=== PATIENT | female | born 1945 | race Caucasian/White ===

== ENCOUNTER 2019-04-04 07:16 | Inpatient (IN) | payer MEDICARE, OTHER, SELFPAY ==
[2019-03-26 12:59] VITALS: BMI 37.9
[2019-04-04] VITALS (26 sets, daily range): BP systolic 88–148; BP diastolic 47–84; PULSE 76–88; RESP 10–19; TEMP 35.8–36.9; O2SAT 78–100; BMI 37.9
--- NOTE | 2019-04-04 | DI.RAD.S_ITS ---
PROCEDURE: XR LUMBAR SPINE 2-3V INDICATIONS: L3-4-5-S1 TLIF TECHNIQUE: 2 views of the lumbar spine were acquired. COMPARISON: [facility] TRACIE Julian, XR LUMBAR SPINE 2 OR 3 VIEWS, 12/01/2018, 13:01. FINDINGS: Bones: Immediate postoperative examination showing normal alignment established by transverse pedicle screws and vertical fixation rods bilaterally, with interbody disc cage prosthesis devices from L3-S1. Soft tissues: Overlying bowel gas pattern is normal. No suspicious soft tissue calcifications. IMPRESSION: Normal alignment established by posterior fusion and three-level interbody disc cage prosthesis devices. Dictated by: Omar Fernandez M.D. on 04/04/2019 at 14:38 Approved by: Omar Fernandez M.D. on 04/04/2019 at 14:40
[2019-04-04] MEDS: LACTATED RINGERS 1,000 ML 42 ML IV ×4 (08:15→13:56)
--- NOTE | 2019-04-04 08:43 | PM.PREOP ---
Pre-operative Note Interval Note History & Physical reviewed/Exam performed by Physician: Yes Changes to H&P: No
[2019-04-04] MEDS: CEFAZOLIN 2 GM/100 ML FROZ.PIGGY IV ×3 (09:10→20:18)
--- NOTE | 2019-04-04 09:40 | SUR.OPER ---
Prone on spine table, head in foam head support, padded chest and pelvic supports, gel pad at knees, lower legs supported by pillows; nipples, genitalia and toes free of pressure, arms secured on foam padded arm boards at <90 degrees abduction. Tape over blanket at thigh secured to table.
[2019-04-04] MEDS: BUPIVACAINE LIPOSOME 266 MG/20 ML VIAL INJ (09:56)
[2019-04-04] MEDS: BUPIVACAINE 0.25% W/ EPI 30 ML VIAL INJ (09:57)
--- NOTE | 2019-04-04 11:37 | SUR.OPER ---
floseal x 2 syringes used lot [id number]
--- NOTE | 2019-04-04 12:38 | SUR.OPER ---
Late in OR - anesthesia meeting.
[2019-04-04 12:47] LABS: Hematocrit 32.1 % (36-46); Hemoglobin 11.2 g/dL (12.0-16.0); Mean Corpuscular HGB Conc 34.8 % (30-36); Mean Corpuscular Hemoglobin 31.3 PG (26-34); Mean Corpuscular Volume 90.1 fL (80-100); Platelet Count 218 X10^3/uL (150-400); Red Blood Cell Count 3.57 X10^6/uL (4.0-5.2); White Blood Cell Count 7.1 X10^3/uL (4.5-11.0)
--- NOTE | 2019-04-04 14:17 | PM.OP.1 ---
Operative Date/Time/Diagnoses Date of procedure: 04/04/19 Time of procedure: 09:18 Pre-op diagnosis: 1. Lumbar scoliosis 2. L3-4, L4-5, L5-S1 spondylolisthesis 3. L3-4, L4-5, L5-S1 spinal stenosis Post-op diagnosis: same Procedure & Clinicians Procedure: 1. L3-4, L4-5, L5-S1 Postero-lateral and posterior interbody fusion 2. L3-4, L4-5, L5-S1 interbody cage placement. 3. L3-4, L4-5, L5-S1 decompressive laminectomy with bilateral facetecomies 4. L3-4, L4-5, L5-S1 Posterior segmental instrumentation 5. [place] of bone marrow from iliac crest 6. Utilization of microsurgical technique and operating microscope Same procedure as scheduled: Yes Indications: Patient has been having chronic back pain and worsening lumbar radiculopathy. Patient failed multiple conservative management with worsening pain weakness and numbness in her lower extremity. Patient has been having difficulty performing activity of daily living. After discussing risks benefits of treatment options, patient elected proceed with surgery. Surgeon: Ryan Murry Silk Screen Printer Machine: Nic Silva Click Yes if Unassisted: No Anesthesia Type: General Operative Notes Closure Type: primary Specimen(s): none sent Prosthetic devices, grafts, tissues, transplants, or devices: GLobus revolve screws, Rise cages Applied: catheter Estimated Blood Loss (mL): 800 Blood products transfused: none Procedure in detail: Patient was seen in the preoperative area. Risks and benefits of the surgery was discussed with the patient. Informed consent was obtained from the patient and placed in the chart. Surgical site was marked. Patient was taken to the operative room. General anesthesia was administered. Prophylactic antibiotic was given to the patient less than 30 min before the incision was made. Patient was placed into a prone position on the Srinivasan table. Patient's back was then prepped and draped in the sterile fashion. Time-out was performed at this time. Using AP and lateral C-arm imaging the interval between L3-S1 was identified and marked on patient's back. A 3 inch incision 2 in from midline was made on the right side first. The fascia was incised in line with skin incision. Globus MARS retractors was placed inside the incision and docked onto the L3, L4 and L5 lamina. Using microsurgical technique and operating microscope, a L3, L4 and L5 laminectomy and L3-4, L4-5 L5-S1 facetectomy was performed using a Kerrison rongeur. The disc space at L3-4, L4-5, L5-S1 was identified. And a total diskectomy was performed at L3-4, L4-5, L5-S1 level. The endplates were decorticated using a rasp and shaver. The total diskectomy and decortication was performed at L3-4, L4-5, L5-S1 level in order to to accomplish a L3-4, L4-5, L5-S1 fusion. The local bone from the laminectomy and facetectomy was saved for local bone grafting. After the total diskectomy and decortication was completed, Bio4 bone graft material was combined with local bone that was harvested earlier. At this time, a separate skin is incision was made over the iliac crest. A Jamshidi needle was inserted into the iliac crest through a separate skin incision. 5 cc of bone marrow aspiration was obtained through the separate skin incision using a Jamshidi needle from the iliac crest. The bone marrow aspiration was combined with local bone and the Bio4 bone grafting material. The bone grafting material was placed into the L3-4, L4-5, L5-S1 interbody space along with three cages, one expandable cage at each level. The cages were expanded to their maximum height using the torque limiting screwdriver. During the process of L3-4 laminectomy and facetectomy patient was found to have severe central and neural foramen stenosis, which was fully decompressed after the decompression was completed. There was a 5 mm dural defect that was identified during the process of decompression. 6-0 silk suture was used to repair the dural defect. And a watertight repair was accomplished using the suture. Valsalva maneuver was performed with the assistance of anesthesia. No CSF leakage was identified after the repair was completed. At this time a mirror image incision was made on the left side. The fascia was incised in line with the skin incision. Globus MARS retractor was inserted and docked onto the L3-4, L4-5, L5-S1 posterolateral gutter. Using the power drill, posterior-lateral decortication was performed at L3-4, L4-5, L5-S1 level until bleeding cortical bone was identified. The remaining bone grafting material was placed into the L3-4, L4-5 L5-S1 posterior lateral gutter he order to accomplish posterolateral fusion at the L3-4, L4-5 L5-S1 levels. Using the double C-arm technique, pedicle screws were placed into the L3, L4, L5, S1 pedicles bilaterally. This was done by placing the Jamshidi needle into the pedicles, then placing the guidewires over the Jamshidi needle, and finally placing the cannulated screws over the guidewires bilaterally. After the pedicle screws were placed, 2 titanium rods was locked into the heads of the pedicle screws using locking caps and torque limiting screwdriver. Total 8 pedicles screws were placed. Thread reducers was used to reduce patient's spondylolisthesis and some of the patient's scoliosis. After all the hardware was placed, and confirmed with AP and lateral C-arm imaging, the wound was then irrigated with sterile normal saline and packed with Ray-Piero gauze for 3 min to accomplish hemostasis. After the gauze was removed the deep fascia was closed with #1 Vicryl suture. The subcutaneous layer was closed with 2-0 Vicryl. The skin was closed with skin kevin. Patient tolerated the procedure well. There were no complications. Complications: none Post-operative Condition: stable Disposition: PACU Plan for aftercare: Admit to inpatient hospital
[2019-04-04] MEDS: HYDROMORPHONE 2 MG INJ IV (14:51)
[2019-04-04] MEDS: ONDANSETRON 4 MG/2 ML INJ IV (14:52)
--- NOTE | 2019-04-04 16:42 | SUR.PHASEI ---
Transferred patient to room with all belongings in place. VSS. Report given to CRISTIANA Moreno. Family in room on transfer.
--- NOTE | 2019-04-04 16:51 | PC.ADMIT ---
[email or web address] Admission Note: The patient,Sarah Perez,74 y/o, was given written information regarding hospital policies, unit procedures and contact persons. Patient's smoking status: Never smoker. Vital Signs - 8 hr 04/04/19 14:31 04/04/19 14:41 04/04/19 14:47 Temperature 96.6 F L Pulse Rate 77 82 77 Respiratory Rate 10 L 13 19 Blood Pressure 111/62 125/67 124/71 Pulse Oximetry 78 L 90 L 97 04/04/19 15:01 04/04/19 15:06 04/04/19 15:11 Temperature Pulse Rate 80 76 76 Respiratory Rate 10 L 10 L 10 L Blood Pressure 103/62 89/66 L 88/66 L Pulse Oximetry 95 95 95 04/04/19 15:16 04/04/19 15:21 04/04/19 15:26 Temperature Pulse Rate 77 79 81 Respiratory Rate 10 L 10 L 12 Blood Pressure 98/74 112/66 114/60 Pulse Oximetry 95 96 93 04/04/19 15:31 04/04/19 15:36 04/04/19 15:41 Temperature Pulse Rate 81 82 82 Respiratory Rate 10 L 11 L 11 L Blood Pressure 125/69 123/68 92/57 L Pulse Oximetry 94 93 93 04/04/19 15:46 04/04/19 15:56 04/04/19 16:06 Temperature 97.8 F Pulse Rate 84 85 85 Respiratory Rate 10 L 12 10 L Blood Pressure 109/79 116/84 115/65 Pulse Oximetry 92 98 94 04/04/19 16:17 Temperature Pulse Rate 85 Respiratory Rate 13 Blood Pressure 96/64 Pulse Oximetry 95 Patient up from PACU via AC bed. Patient drowsy but wakes up easily and answers questions appropriately. Drsg CDI, patient about to move feet/toes. States pain 5/10 is achy and nodes at the question if its tolerable.
[2019-04-04] MEDS: SODIUM CHLORIDE 0.9% 1,000 ML 100 ML IV (17:00)
--- NOTE | 2019-04-04 17:00 | PC.NURSE ---
Addendum entered by Sobeida Garza R.N. 04/04/19 21:53: Now agreeable to reposition onto right side. Ice applied to back dressing which remains dry and intact. Pt requests break from scd's and this was done. Pillow between legs. Addendum entered by Sobeida Garza R.N. 04/04/19 20:54: Pt medicated for pain 8/10 to back. Resistant to reposition in bed after discussion re sidelying may provide relief from pain. Careful monitoring of bp. Addendum entered by Sobeida Garza R.N. 04/04/19 18:50: Pt's daughter informs this program writer that pt's baseline blood pressure runs on the low side. Addendum entered by Sobeida Garza R.N. 04/04/19 18:40: Pt pale, but awake. Remains flat in bed as instructed by PACU, RN. BP 113/49 with HR 79. 02 2l n sats 98%. Reports pain in back greater than 5/10. Medicated as per emar. Addendum entered by Sobeida Garza R.N. 04/04/19 18:06: Pt arrived to room 210 with BL foot pumps in place. These continue. Addendum entered by Sobeida Garza R.N. 04/04/19 17:14: Pt reports pain increasing to back. With assistance keeping pt's supine, turned pt off of back to right side and applied ice to back. Pt reports this increases pain. Returned to back as per request. Rate pain achy in nature 5/10. Original Note: Pt to room 210 from PACU drowsy, but rousable to voice. Able to follow directions and log roll to view dressing to back. Dressing to back is dry and intact. BL foot pumps in place. Pt admits to pain to back 5/10. Does fall asleep easily. Pt flat in bed as per orders by TRIMMER CLIMBER. Family at bedside. Pérez to gravity. Ice chips with assistance. Pt is able to ankle wave and move feet BL. Admits to sensation to BL LE's. Continuous pulse oximeter in place with 02 @ 2L per NC sats 97%. IV fluids infusing as ordered to right wrist iv site.
[2019-04-04] MEDS: HYDROMORPHONE 0.5 MG INJ IV ×2 (17:20→20:15)
[2019-04-04] MEDS: OXYCODONE IR 10 MG TABLET PO ×2 (18:48→23:40)
[2019-04-04] MEDS: ACETAMINOPHEN 325 MG TABLET 650 MG PO (18:48)
[2019-04-04] MEDS: DOCUSATE 100 MG CAPSULE PO (20:18)
[2019-04-04] MEDS: SERTRALINE 50 MG TABLET 100 MG PO (20:18)
[2019-04-04] MEDS: SENNOSIDES 8.6 MG TABLET 17.2 MG PO (20:18)
[2019-04-04] MEDS: CALCIUM CARBONATE 600 MG TABLET PO (20:19)
[2019-04-04] MEDS: hydrOXYzine pamoate 25 MG CAPSULE PO (21:57)
[2019-04-05] VITALS (8 sets, daily range): BP systolic 110–120; BP diastolic 52–80; PULSE 82–93; RESP 18–22; TEMP 36.4–37.2; O2SAT 93–98
--- NOTE | 2019-04-05 00:21 | PC.NURSE ---
Addendum entered by Opal Caruso R.N. 04/05/19 05:49: Pain still not relieved and now 7/10 so repositioned onto back and medicated with IV Dilaudid. Addendum entered by Opal Caruso R.N. 04/05/19 04:58: Patient states pain is returning so repositioned onto right side, medicated with Vistaril (too early for additional Oxycodone) and ice applied. Addendum entered by Opal Caruso R.N. 04/05/19 03:10: Patient awake and asking to be repositioned so assisted to turn onto left side. States back pain is again at 6/10 so medicated with Oxycodone. Original Note: Patient is alert and oriented. Breath sounds CTA. Oxygen at 2L/min with sat of 98% at bedside shift report so decreased to 1L/min and sat is now at 94%. HRR. Denies nausea. BT hypoactive; denies flatus. Indwelling catheter is patent; urine is clear yellow. Is able to turn with assistance; requests not to be wakened at night for repositioning so reminded to call for assist when wanting to turn. Dressing to back is CDI. States pain is constant and dull and rates severity as 6/10 so medication with Oxycodone; delines ice pack at this time. Refusing SCD's as not able to sleep with them on; reminded to ankle wave and patient verbalizes understanding. Is currently flat in bed due to dural tear. Fall risk score is moderate; bed alarm is activated for safety.
[2019-04-05] MEDS: OXYCODONE IR 10 MG TABLET PO ×4 (03:05→21:33)
[2019-04-05] MEDS: SODIUM CHLORIDE 0.9% 1,000 ML 100 ML IV ×2 (03:08→13:39)
[2019-04-05] MEDS: CEFAZOLIN 2 GM/100 ML FROZ.PIGGY IV (04:45)
[2019-04-05] MEDS: MAG HYDROX/ALUM/SIMETH 30 ML UDC PO (04:46)
[2019-04-05] MEDS: hydrOXYzine pamoate 25 MG CAPSULE PO ×2 (04:52→10:29)
[2019-04-05] MEDS: HYDROMORPHONE 0.5 MG INJ IV ×2 (05:47→12:36)
[2019-04-05 05:59] LABS: Hematocrit 28.6 % (36-46); Hemoglobin 9.6 g/dL (12.0-16.0)
--- NOTE | 2019-04-05 09:30 | OT.IP.TRT ---
Current Diagnoses Other secondary scoliosis, lumbar region (04/04/19) Spondylolisthesis, lumbar region (04/04/19) Spinal stenosis, lumbar region with neurogenic claudication (04/04/19) Surgery Performed Operation Date: 04/04/19 08:45 Actual Procedures p L3-4,L4-5,L5-S1 TLIF w/ posterior instrumentation - Ryan Murry MD Occupational Therapy Treatment Note M3 OT- IP Subjective and Pain Start: 04/05/19 13:41 Freq: Status: Active Protocol: Document 04/05/19 09:30 PJM (Rec: 04/05/19 13:44 PJM [id number]) OT- Subjective Occupational Therapy Visit Type Type Administrative Note Visit Start Time 09:30 Notes OT referral received. Chart reviewed and note pt had dural tear during spine surgery and is on bedrest until 1500 today per RN. Will attempt OT evaluation after 1500 as schedule permits or in AM.
[2019-04-05] MEDS: PANTOPRAZOLE 20 MG TABLET PO (10:28)
[2019-04-05] MEDS: LORATADINE 10 MG TABLET PO (10:28)
[2019-04-05] MEDS: DOCUSATE 100 MG CAPSULE PO ×2 (10:28→21:39)
--- NOTE | 2019-04-05 10:32 | CM.DANOTE ---
DCP: Case received, EMR reviewed and met with patient. Introduced self and role. Was able to obtain some information from patient regarding baseline activity and living situation. DCP assessment completed with information currently available. Patient is a 74 year old female who admitted yesterday morning to the care of the orthopedic team. PCP: Dr. Cortez. Payer: confirmed: Medicare/[employer]. Patient came to the hospital for a surgical procedure. She had an L3-4, 4-5, 5-S1 interbody fusion. Patient has history of lumbar scoliosis, contributing to chronic back pain. Met with patient in her room, she was laying flat in bed per protocol. She is alert and oriented, pleasant. She resides in [place] alone, and has been for over a year. She stated that her family moved up here from [facility], to be closer to patient. She stated, she has plenty of family support. Stated that her daughter, Thomas, will be staying with patient to assist her post surgery. Prior to surgery, patient mentioned that she was not using any DME supplies. P: DCP to continue to follow patient closely. She will also be working with P.T. as well. Plan is for home when medically stable, and cleared by P.T. Samina Schmidt RN/Refining Still Operator
[2019-04-05] MEDS: PROPRANOLOL 10 MG TABLET 20 MG PO (10:38)
[2019-04-05] MEDS: CALCIUM CARBONATE 600 MG TABLET PO ×2 (10:38→21:34)
--- NOTE | 2019-04-05 10:43 | PC.NURSE ---
Pt remains supine until 1500 today per order for dural tear.
[2019-04-05] MEDS: ACETAMINOPHEN 325 MG TABLET 650 MG PO (15:50)
--- NOTE | 2019-04-05 15:50 | PM.PNPO.1 ---
Subjective Subjective Date Patient Seen: 04/05/19 Time Patient Seen: 15:50 Interval history: Pain is moderate to severe. Denies fever chills. No nausea /vomiting. Exam Vital Signs (past 8 hours): - 04/05/19 08:40 04/05/19 13:00 Temperature 98.9 F 97.5 F L Pulse Rate 93 H 88 Respiratory Rate 18 20 Blood Pressure 120/80 113/67 Pulse Oximetry 98 94 Oxygen Delivery Method Nasal Cannula Oxygen Flow Rate 0 Narrative Exam Narrative: 74-year-old female resting comfortably in bed in no apparent distress. Dressing is clean, dry and intact. Bilateral lower extremities are warm and dry. Motor functions intact bilateral lower extremities. Sensation grossly intact to light touch bilateral lower extremities. Objective Labs Result Diagrams: 04/05/19 05:50 Labs: Laboratory Results - last 24 hr 04/05/19 05:50 Hgb 9.6 L Hct 28.6 L Assessment & Plan Post-op Postoperative Procedures: Procedures Operation Date: 04/04/19 08:45 Actual Procedures Side Surgeon p L3-4,L4-5,L5-S1 TLIF w/ posterior instrumentation Ryan Murry MD Postop day 1. Patient had been some pine in till 3:00 p.m. this evening secondary to possible dural tear. She is currently working with physical therapy. Possible discharge home the next day or 2. Quality VTE Deep Vein Thrombosis/Pulmonary Embolism Present on Admission: No
--- NOTE | 2019-04-05 16:45 | PT.IIE ---
Current Diagnoses Other secondary scoliosis, lumbar region (04/04/19) Spondylolisthesis, lumbar region (04/04/19) Spinal stenosis, lumbar region with neurogenic claudication (04/04/19) Surgery Performed Operation Date: 04/04/19 08:45 Actual Procedures p L3-4,L4-5,L5-S1 TLIF w/ posterior instrumentation - Ryan Murry MD Surgical History (Last Updated 03/26/19 @ 13:18 by Sarah Mosqueda RN) History of arthroplasty of left knee (Acute) History of arthroplasty of right knee (Acute) History of bladder surgery (Acute) History of hysterectomy (Acute) Hx of bilateral cataract extraction (Acute) Hx of cholecystectomy (Acute) Hx of sinus surgery (Acute) Hx of tonsillectomy (Acute) Medical History (Last Updated 03/26/19 @ 13:18 by Sarah Mosqueda RN) Back pain (Acute) Chronic sinusitis (Acute) Depression (Acute) Familial tremor (Acute) GERD (gastroesophageal reflux disease) (Acute) Hearing impaired (Acute) Osteoarthritis (Acute) Overactive bladder (Acute) Pneumonia (Acute) RLS (restless legs syndrome) (Acute) Seasonal allergies (Acute) Thinning of skin (Acute) Vertigo (Acute) Physical Therapy Inpatient Evaluation/Re-Eval M1 PT/OT-IP Prior Functional Status Start: 04/05/19 08:35 Freq: NEEDED Status: Active Protocol: Document 04/05/19 16:10 AW (Rec: 04/05/19 16:45 AW [email or web address]) Medical Review Prior Functional Status Medical History Reviewed Yes Communication WNL. Pt is an effective verbal communicator. Mobility and Gait Pt ambulated independently without AD but had a limit of 5-10 minutes before requiring a rest break due to increasing back pain. Activities of Daily Living and IADL's Independent. Prior Functional Level (Other details) Pt reports she has not fallen in the last year. Social History Household Members children Living Arrangements Mobile home Number of Floors (Floors) One Floor Number of Stairs To Enter/Railing? 4 RUS[place] with narrow bilateral rails Home Environment Standard Height Toilet,Walk in Shower Home Equipment Front Wheel Walker,Four Wheel Walker,Straight Cane,Manual Wheelchair,Raised Toilet Seat Without Armrests,Shower Seat without Backrest,Hand Held Shower,Long Handled Shoe Horn, Exit Booth Agent,Grab Bars Near Toilet, Grab Bars In Shower Additional Social History Comment Pt's daughter, Thomas, and son -in-law live with her. Thomas works manufacturing supervisor 2nd shift but will be off work 2-3 weeks to be able to provide 24/ care. Pt's daughter admits she would have difficulty providing heavy lift assist. M2 PT-IP Current Condition Start: 04/05/19 08:35 Freq: NEEDED Status: Active Protocol: Document 04/05/19 16:10 AW (Rec: 04/05/19 16:45 AW [email or web address]) Physical Therapy Current Condition Current Condition Evaluation Date 04/05/19 Treatment Diagnosis L3-4 L4-5 L5-S1 TLIF, impaired mobility Precautions Lumbar Precautions Log Roll,No Twisting,Limit Bending,Lifting Restriction of 10 lbs,Gait Belt above Incisional Area Weight Bearing Status Weight Bearing Status Full Weight Bearing M3 PT-IP Subjective Start: 04/05/19 08:35 Freq: NEEDED Status: Active Protocol: Document 04/05/19 16:10 AW (Rec: 04/05/19 16:45 AW [email or web address]) Subjective Physical Therapy Visit Type Type Initial Evaluation Visit Start Time 15:29 Visit Stop Time 16:05 Total Visit Minutes 36 Notes Pt's daughter present throughout evaluation. Pt had been on supine bedrest since surgery due to dural tear. Number of COOK CHEF Visits 0 Physical Therapy Visit Comments Patient Comments Pt is feeling sleepy from the effects of pain medications but is willing to attempt mobility with PT. Therapy Pain Assessment Pain When Pain Assessed At Rest Pain Present Pain Present Pain Reported Location Lower Back Intensity 6 Scale Used Numeric (1 - 10) Description Pinching,Pulling Pain Behaviors Facial Grimacing,Guarding, Moaning,Wincing Pain Management Techniques Re-positioning,Timing of Activity with Medications M4 PT-IP Mobility and Gait Start: 04/05/19 08:35 Freq: NEEDED Status: Active Protocol: Document 04/05/19 16:10 AW (Rec: 04/05/19 16:45 AW [email or web address]) PT-Bed Mobility Assessment Rolling Type of Rolling Log Rolling Level of Assist Maximal Assistance,1 Person Assistance,2 Person Assistance Supine to Sit Supine to Sit Moderate Assistance,2 Person Assistance,Bedrails Sit to Supine Sit to Supine Moderate Assistance,2 Person Assistance,Bedrails Scooting Scooting Up and Down in Bed Dependent PT-Transfer Assessment Comments Mobility Comments Pt encountered lying flat in bed as ordered by MD until 1500 today. She required max assist x 1-2 for log rolling, requiring assist to bend her knees due to increased pain. Pt demonstrated severe guarding behavior on attempt to roll to either side. She was able to maintain left sidelying position long enough for PA and RN to assess lumbar dressing. She then required mod assist x 2 and verbal cues to accomplish transition to sitting from sidelying, including assist to move her legs off the bed and assist to right her trunk. In sitting, pt complained of weak wrists, limiting her ability to support herself. She also became pale, diaphoretic, and complained of lightheadedness and nausea. In sitting, BP was assessed with automatic cuff at the ankle 134/109. Pt required mod assist x 1 to maintain sitting balance for ~5 minutes . Symptoms did not subside and pt reported increasing nausea , so she was returned to sidelying, requiring mod assist x 2. Draw sheet was placed with pt requiring mod assist x 2 to roll side to side. Pt was dependent for boosting up in the bed. She was positioned in the bed on her left side and left with RN attending. Gait Assessment Comments Gait Comments Unable at this time Stair Climbing Assessment Comments Stair Climbing Comments Not assessed. Unable at this time. PT-Balance Assessment Sitting Balance and Reactions Static Sitting Balance Ability Poor Dynamic Sitting Balance Ability Poor M5 PT-IP Objective Assessments Start: 04/05/19 08:35 Freq: NEEDED Status: Active Protocol: Document 04/05/19 16:10 AW (Rec: 04/05/19 16:45 AW [email or web address]) Orientation Orientation/Cognition Level of Alertness Confusional State Orientation Name,Month,Place,Situation Language Function Ability No Deficits Noted Safety Awareness Understands Safety Issues Memory Description No Deficits Noted Gross Range of Motion Lower Extremity ROM Assessment Within Functional Limits Strength Upper Extremity Strength Assessment Bilaterally Impaired Lower Extremity Strength Assessment Bilaterally Impaired Comments Strength Comments Pt with difficulty supporting herself in sitting due to weak and painful wrists. Pt unable to flex knees in supine without assist. Sensation Assessment Sensation Gross Sensation WNL M6 PT-IP Treatment Start: 04/05/19 08:35 Freq: NEEDED Status: Active Protocol: Document 04/05/19 16:10 AW (Rec: 04/05/19 16:45 AW [email or web address]) Physical Therapy Treatment Education Education Provided Precautions,Weight Bearing Status,Post-Op Packet,Safety Other Treatments Other Treatment Performed Provided education on role of PT, plan of care, post-op precautions. M7 PT-IP Assessment and Plan Start: 04/05/19 08:35 Freq: NEEDED Status: Active Protocol: Document 04/05/19 16:10 AW (Rec: 04/05/19 16:45 AW [email or web address]) PT Summary Assessment and Plan Potential Rehabilitation Potential Fair Status of Condition at Evaluation Evolving Summary Impairments Pain,ROM,Strength,Balance,Bed Mobility,Transfers,Gait, Activity Tolerance Assessment Summary Sarah is a 74 year old woman seen on POD 1 following multi- level TLIF. She had a dural tear during surgery and was on bedrest 24 hours prior to evaluation. At baseline, pt ambulated without AD and climbed stairs using narrow bilateral rails. She had a limit of 5-10 minutes ambulation before requiring rest break due to back pain. On evaluation, she required mod to max assist x 1-2 for bed mobility. She became persistently symptomatic in sitting and was unable to proceed with standinding attempts. Depending on progress, pt may require consideration of SNF rehab in order to promote safe return to home environment where her daughter can provide limited assist but is unable to perform heavy lifting assist. Will continue to assess and refine discharge recommendation. Goals Bed Mobility Goal Standby Assistance Transfer Goal Standby Assistance,Front Wheeled Walker Gait Goal Standby Assistance,Front Wheel Walker Gait Distance 100 Other Goals - up/down 4 steps with bilateral rails SBA Days to Meet Goals 10 Frequency of Treatment Frequency Of Treatment Twice a Day Treatment Plan Physical Therapy Treatment Plan Bed Mobility Training,Transfer Training,Gait Training, Therapeutic Exercise,Balance Retraining,Post Op Education, Discharge Planning,Hot or Cold Pack,Neuromuscular Re-ed, Coordination Retraining,Manual Therapy Other Recommendations and Next Treatment bed mobility, standing Focus attempts, transfer Recommendations To Nursing Amount of Assist Needed 2 Person Assist,3 or More Person Assist Discharge Recommendations PT Discharge Recommendations Home with Assistance,Home Health,SNF Rehab Other Discharge Recommendations SNF rehab likely vs home with assist and HH (depending on progress)
--- NOTE | 2019-04-05 19:28 | PC.NURSE ---
Addendum entered by Sobeida Garza R.N. 04/05/19 23:32: STONE CUTTER does report to this gag writer at one point this evening pt awoke tearful and expressed confusion re location. STONE CUTTER reassured pt. This gag writer has not witnessed any confusion by pt this shift. Addendum entered by Sobeida Garza R.N. 04/05/19 22:49: STONE CUTTER has assisted pt to resposition in bed throughout the shift. Currently on left side with [address] @ 2L per NC. Sats 92% per continuous monitor. Rates back pain 05/24. Meds as per emar. Original Note: 1530: P.T. in with pt @ beginning of shift. Mobilizes pt to sitting position on side of bed. Pt c/o dizziness and nausea. BP checked and 134/101. P.T. returns pt to side lying position in bed. Pt requires a good deal of verbal cueing and instruction and reinforcement to avoid twisting and to move in a log rolling fashion when in bed. BL calf scd's replaced. Palpable pedal pulses BL. Reports nausea resolves when lying down. Pain meds provided as per emar. Ice placed to back. Shadowy drainage noted to dressing sites and outlined in a dotted fashion. Contained within dressing. STONE CUTTER reports to this gag writer pt's 02 sats when lying down 88% on room air. 02 @ 2L nc placed with continuous pulse oximeter on forehead. Sats increase to 94%. Pt's daughter is at bedside. Pérez to gravity. IV fluids continue to run as pt's urinary output is scant with limited po intake.
[2019-04-05] MEDS: SERTRALINE 50 MG TABLET 100 MG PO (21:34)
[2019-04-05] MEDS: SENNOSIDES 8.6 MG TABLET 17.2 MG PO (21:39)
[2019-04-06] VITALS (8 sets, daily range): BP systolic 107–141; BP diastolic 54–76; PULSE 75–92; RESP 17–20; TEMP 36.3–37.3; O2SAT 90–97
--- NOTE | 2019-04-06 01:43 | PC.NURSE ---
Addendum entered by Opal Caruso R.N. 04/06/19 02:17: Found with IV pulled out so new IV inserted into right wrist/forearm. Medicated with Oxycodone for 4/10 pain and repositioned onto back. Original Note: Patient seen and assessed at 2345. Is alert and oriented but seems anxious regards her condition. Breath sounds CTA with oxygen at 2L/min per NC and sat of 92-93% (evening RN reports patient drops into 80's on RA). HRR. Denies nausea. BT present and abdomen is soft. Continues to have indwelling catheter which is patent; urine is clear yellow. Assisted to turn as patient requests; does not want to be woken during the night. Dressing to back is intact with shadow drainage outlined on previous shift. CMS is intact. Reportedly has only been up to sit on side of bed and not yet ambulated since surgery. Wearing bilateral calf SCD's. States pain is 4/10 but tolerable; assisted to reposition and ice applied for comfort. Fall risk score is moderate; bed alarm is activated for safety.
[2019-04-06] MEDS: OXYCODONE IR 10 MG TABLET PO ×2 (02:12→06:35)
--- NOTE | 2019-04-06 07:16 | PM.PNPO.1 ---
Subjective Subjective Date Patient Seen: 04/06/19 Time Patient Seen: 07:16 Interval history: POD #2 s/p TLIF with Dr. Murry. Patient had significant pain control issues yesterday. She also became confused yesterday on Dilaudid. Patient reports significant pain in her back. She was very slow to mobilize yesterday and all limited to the edge of her bed. She still has a Pérez catheter in place. Per nursing she has been satting low and requiring oxygen at night. H+H 9.6/28.6 will recheck H+H today. Exam Vital Signs (past 8 hours): - 04/05/19 23:40 04/06/19 05:20 Temperature 98.5 F 98.4 F Pulse Rate 87 92 H Respiratory Rate 18 18 Blood Pressure 110/52 L 127/70 Pulse Oximetry 93 92 Oxygen Delivery Method Nasal Cannula Oxygen Flow Rate 2 Narrative Exam Narrative: Patient lying in bed no acute distress. She is alert orient x3. Calves are soft, compressible, nontender bilaterally. She was wearing 1 SCD but not the other. Pulses are symmetrical. She is encouraged to wear her SCDs. She is able to actively dorsiflex and plantar flex. Objective Labs Result Diagrams: 04/06/19 08:28 Assessment & Plan Post-op Postoperative Procedures: Procedures Operation Date: 04/04/19 08:45 Actual Procedures Side Surgeon p L3-4,L4-5,L5-S1 TLIF w/ posterior instrumentation Ryan Murry MD recheck H&H today. She will continue mobilize with physical therapy today. No excessive bending, lifting, or twisting. When she is more mobile out of bed, then she can DC Pérez. Continue current pain control. Adding steroids today 10 mg now, and 4 mg every 6 hours for 24 hour burst. H+H rechecked today at 9.0/23.6 and she is asymptomatic today sitting in her chair. Will recheck tomorrow. If she becomes symptomatic or a further drop in H+H would recommend transfusion. She has been very slow to mobilize and I would recommend SNF at this time. Quality VTE Deep Vein Thrombosis/Pulmonary Embolism Present on Admission: No
[2019-04-06 08:39] LABS: Hematocrit 23.6 % (36-46); Mean Corpuscular Hemoglobin 30.7 PG (26-34); Mean Corpuscular Volume 90.4 fL (80-100); Platelet Count 169 X10^3/uL (150-400); Red Blood Cell Count 2.61 X10^6/uL (4.0-5.2); Red Cell Distribution Width 12.8 % (11.6-14.8); White Blood Cell Count 11.7 X10^3/uL (4.5-11.0)
[2019-04-06] MEDS: CALCIUM CARBONATE 600 MG TABLET PO ×2 (10:27→22:11)
[2019-04-06] MEDS: Mirabegron [Myrbetriq] 50 MG 50 EACH PO (10:27)
[2019-04-06] MEDS: DOCUSATE 100 MG CAPSULE PO ×2 (10:27→22:10)
[2019-04-06] MEDS: PROPRANOLOL 10 MG TABLET 20 MG PO ×2 (10:27→22:13)
[2019-04-06] MEDS: PANTOPRAZOLE 20 MG TABLET PO (10:28)
[2019-04-06] MEDS: LORATADINE 10 MG TABLET PO (10:28)
[2019-04-06] MEDS: ACETAMINOPHEN 325 MG TABLET 650 MG PO ×2 (10:28→18:13)
[2019-04-06] MEDS: FLUTICASONE 120 SPRAY/16 GM SPRAY.SUSP NASAL (10:28)
[2019-04-06] MEDS: SODIUM CHLORIDE 0.9% FLUSH 10 ML IV ×2 (10:29→22:12)
[2019-04-06] MEDS: DEXAMETHASONE 10 MG/ML VIAL IV (10:29)
--- NOTE | 2019-04-06 11:05 | PC.NURSE ---
Addendum entered by Evangelina Beltrán R.N. 04/06/19 15:22: Patient continues to be on 2L of 02 and her sats are high 90s. Resting comfortably now. Addendum entered by Evangelina Beltrán R.N. 04/06/19 13:40: Pt is confused but clearing. Up to chair with Physical Therapy and this RN. Denaether in room visiting. Patients H&H 8.0 and 23. Faxed [facility] and she states that they will order a hemoglobin and hematocrit in the AM and she has ordered vit c and fe. Original Note: Patient is confused but does know where she is at.. She denies pain, just up with physical therapy and tolerated well. Back dressing is cdi, with a small amount of ss drainage. Pérez patent with sandra colored urine. Denies any numbness or tingling to lower extremities. On O2 as sats drop to the mid 80s. She is up to 95% on 2L. Given first dose of decadron this am. Resting in chair and SCRAPER LOADER OPERATOR working with patient.
--- NOTE | 2019-04-06 11:21 | PT.IPTN ---
Current Diagnoses Other secondary scoliosis, lumbar region (04/04/19) Spondylolisthesis, lumbar region (04/04/19) Spinal stenosis, lumbar region with neurogenic claudication (04/04/19) Surgery Performed Operation Date: 04/04/19 08:45 Actual Procedures p L3-4,L4-5,L5-S1 TLIF w/ posterior instrumentation - Ryan Murry MD Physical Therapy Treatment Note M2 PT-IP Current Condition Start: 04/05/19 08:35 Freq: NEEDED Status: Active Protocol: Document 04/05/19 16:10 AW (Rec: 04/05/19 16:45 AW [email or web address]) Physical Therapy Current Condition Current Condition Evaluation Date 04/05/19 Treatment Diagnosis L3-4 L4-5 L5-S1 TLIF, impaired mobility Precautions Lumbar Precautions Log Roll,No Twisting,Limit Bending,Lifting Restriction of 10 lbs,Gait Belt above Incisional Area Weight Bearing Status Weight Bearing Status Full Weight Bearing M3 PT-IP Subjective Start: 04/05/19 08:35 Freq: NEEDED Status: Active Protocol: Document 04/06/19 10:56 KS (Rec: 04/06/19 12:18 KS [id number]) Subjective Physical Therapy Visit Type Type Treatment Note Visit Start Time 10:56 Visit Stop Time 11:21 Total Visit Minutes 25 Notes Called nursing for assist w/ getting out of bed. Number of RADIOLOGY SCHEDULER Visits 1 Physical Therapy Visit Comments Patient Comments Pt appeared sleepy and confused, but agreed to work w / therapy. M4 PT-IP Mobility and Gait Start: 04/05/19 08:35 Freq: NEEDED Status: Active Protocol: Document 04/06/19 10:56 KS (Rec: 04/06/19 12:18 KS [id number]) PT-Bed Mobility Assessment Rolling Type of Rolling Log Rolling Level of Assist Maximal Assistance,2 Person Assistance Supine to Sit Supine to Sit Moderate Assistance,2 Person Assistance,Bedrails Scooting Scooting Up and Down in Bed Minimal Assistance PT-Transfer Assessment Sit to and From Stand Sit to and from Stand Moderate Assistance,2 Person Assistance,Use of Upper Extremities Equipment Transfer Assistive Device Gait Belt,Front Wheeled Walker Orthotic/Prosthetic Devices or Brace: No Transfers Transfer Destination Chair Transfer Technique Stand Step Pivot Transfer Ability Level of Assist Minimal Assistance,2 Person Assistance Comments Mobility Comments Pt was sitting in bed upon arrival from therapy and seemed confused, but was willing to get out of bed. Pt first instructed in ankle pumps, quad sets, glute sets, and heel slides but required max cues throughout and had trouble performing all except ankle pumps. Pt unable to recall any precautions, reminded of precautions and logroll. Nursing called in to assist with logroll to R side, max cues and Max A x2 for rolling and sidelying to sit EOB. Once EOB, pt was able to sit upright w/ support provided by nurse from behind. After ~3 min, pt was able to support herself in sitting upright. Pt needs Min A and max cues for scooting to EOB. Pt needs clear and simple instruction for completing tasks. When performing sit<> stand w/ FWW, pt tried to slide forward rather than standing, but was able to stand w/ Mod A x2 on second attempt, w/ cues for had placement and pushing through legs. Once standing, pt performed stand step pivot from bed to chair w/ min A x2 RADIOLOGY SCHEDULER behind and nurse in front for guarding, max cues. Pt sat back in chair Min A w/ cues to reach back for chair and back up all the way to chair. Pt left in chair w/ O2 and chair alarm on w/ all needs in reach. Gait Assessment Gait Gait Assistance Required: Minimum Assistance Distance (Feet) 2 Able to Maintain Weight Bearing Status Yes During Gait Assistive Devices Assistive Device Gait Belt,Front Wheeled Walker Orthotic/Prosthetic Devices or Brace: No Gait Deviations General Gait Pattern Decreased Feet Clearance, Flexed Trunk Factors Limiting Gait Function Factors Limiting Gait Function Decreased Activity Tolerance, Decreased Strength,Limited Range of Motion,Pain,Poor Balance,Poor Safety Awareness Comments Gait Comments Please refer to mobility section for details. Stair Climbing Assessment Comments Stair Climbing Comments Not assessed. Unable at this time. PT-Balance Assessment Sitting Balance and Reactions Static Sitting Balance Ability Poor Dynamic Sitting Balance Ability Poor Standing Balance and Reactions Static Standing Balance Ability Poor Dynamic Standing Balance Ability Poor Device Used FWW M5 PT-IP Objective Assessments Start: 04/05/19 08:35 Freq: NEEDED Status: Active Protocol: Document 04/05/19 16:10 AW (Rec: 04/05/19 16:45 AW [email or web address]) Orientation Orientation/Cognition Level of Alertness Confusional State Orientation Name,Month,Place,Situation Language Function Ability No Deficits Noted Safety Awareness Understands Safety Issues Memory Description No Deficits Noted Gross Range of Motion Lower Extremity ROM Assessment Within Functional Limits Strength Upper Extremity Strength Assessment Bilaterally Impaired Lower Extremity Strength Assessment Bilaterally Impaired Comments Strength Comments Pt with difficulty supporting herself in sitting due to weak and painful wrists. Pt unable to flex knees in supine without assist. Sensation Assessment Sensation Gross Sensation WNL M6 PT-IP Treatment Start: 04/05/19 08:35 Freq: NEEDED Status: Active Protocol: Document 04/06/19 10:56 KS (Rec: 04/06/19 12:18 KS [id number]) Physical Therapy Treatment Exercises Exercises Ankle Pumps,Gluteal Sets,Quad Sets,Heel Slides Education Education Provided Precautions,Weight Bearing Status,Post-Op Packet,Safety Other Treatments Other Treatment Performed Instructed on exercises, reviewed precautions and logroll. M7 PT-IP Assessment and Plan Start: 04/05/19 08:35 Freq: NEEDED Status: Active Protocol: Document 04/06/19 10:56 KS (Rec: 04/06/19 12:18 KS [id number]) PT Summary Assessment and Plan Potential Rehabilitation Potential Fair Status of Condition at Evaluation Evolving Summary Impairments Pain,ROM,Strength,Balance,Bed Mobility,Transfers,Gait, Activity Tolerance Assessment Summary Pt showed improvements w/ mobility today and was able to transfer from bed to chair w/ stand step pivot, but remains weak and very confused and required max cues throughout treatment. Max A x2 for logroll to R and Mod A x2 for sidelying to sit EOB. Min A max cues for scooting to EOB. Pt required support from behind to remain in upright sitting position for ~3 min before she was able to sit up on her own. Pt was then instructed how to perform sit< >stand w/ FWW but on first attempt started sliding forward rather than standing, on second attempt pt stood Mod A and did stand step pivot min A x2 for guarding in front and back w/ max cues.Pt sat in chair Min A w/ cues. Goals Bed Mobility Goal Standby Assistance Transfer Goal Standby Assistance,Front Wheeled Walker Gait Goal Standby Assistance,Front Wheel Walker Gait Distance 100 Other Goals - up/down 4 steps with bilateral rails SBA Days to Meet Goals 10 Frequency of Treatment Frequency Of Treatment Twice a Day Treatment Plan Physical Therapy Treatment Plan Bed Mobility Training,Transfer Training,Gait Training, Therapeutic Exercise,Balance Retraining,Post Op Education, Discharge Planning,Hot or Cold Pack,Neuromuscular Re-ed, Coordination Retraining,Manual Therapy Other Recommendations and Next Treatment bed mobility, standing Focus attempts, transfer Recommendations To Nursing Amount of Assist Needed 2 Person Assist,3 or More Person Assist Discharge Recommendations PT Discharge Recommendations SNF Rehab Other Discharge Recommendations SNF rehab likely vs home with assist and HH (depending on progress)
--- NOTE | 2019-04-06 13:20 | CM.DPC ---
Addendum entered by Rhea Downs LPN 04/06/19 13:59: Pt and Thomas are updated re the room availability at [facility]. Thomas said that Dr. Murry had told both her and her after surgery that, if a snf setting was needed he expected she would be ready for d/c by Sunday 04/09. [facility] Nancy has said that, if pt does d/c before Tuesday, she could be placed in their one available female shared room with a rehab roommate and then could transition to the pvt room when open. P: will follow closely this weekend to facilitate the d/c plan. OT Jessica is now working with pt. She, too, is recommending a short snf stay before home. Addendum entered by Rhea Downs LPN 04/06/19 13:37: Do note that pt has dural tear during surgery process and was on bedrest 24s post surgery: re OT note of yesterday so she is a bit behind in terms of her process with therapy. Original Note: DCP: continued: case received, EMR reviewed. Note plan for pt to d/c to home setting with daughter's supportive assist. Was updated today by TRAIN CONTROLLER that pt is max assist of 2 and recommendation for today is snf consideration. Met now with pt and her daughter Thomas Claudia: cell: [phone]. Introduced self and role. Pt is still reportedly slightly confused, confirmed by her daughter and attributed to likely post surgical medication but was up in chair and very involved in the dcp diso disucssion. Thomas confirms that she and her Brett moved here to help her mother after she was . She works nights, her works days and they have their own living space (RV) on the property as well as a bedroom in pt's home. Thomas has taken 3 weeks off work to assist her mother post surgery but both concede that they would not have the 2 person assist that PT currently is recommending. Discuss snf and HH options. Plan is now for Plan A: home with family if she can be at simple one person assist status ( likely SBA or CGA) and [facility] vs Plan B: short snf stay. Will plan to check in again tomorrow and follow closely. re snf: facility list: given: decision: [facility] IF a room is available. Nella is reviewing...expects pvt room on Tuesday.
--- NOTE | 2019-04-06 14:09 | OT.IP.EVAL ---
Current Diagnoses Other secondary scoliosis, lumbar region (04/04/19) Spondylolisthesis, lumbar region (04/04/19) Spinal stenosis, lumbar region with neurogenic claudication (04/04/19) Surgery Performed Operation Date: 04/04/19 08:45 Actual Procedures p L3-4,L4-5,L5-S1 TLIF w/ posterior instrumentation - Ryan Murry MD Past Medical History (Last Updated 03/26/19 @ 13:18 by Sarah Mosqueda RN) Back pain (Acute) Chronic sinusitis (Acute) Depression (Acute) Familial tremor (Acute) GERD (gastroesophageal reflux disease) (Acute) Hearing impaired (Acute) Osteoarthritis (Acute) Overactive bladder (Acute) Pneumonia (Acute) RLS (restless legs syndrome) (Acute) Seasonal allergies (Acute) Thinning of skin (Acute) Vertigo (Acute) Surgical History (Last Updated 03/26/19 @ 13:18 by Sarah Mosqueda RN) History of arthroplasty of left knee (Acute) History of arthroplasty of right knee (Acute) History of bladder surgery (Acute) History of hysterectomy (Acute) Hx of bilateral cataract extraction (Acute) Hx of cholecystectomy (Acute) Hx of sinus surgery (Acute) Hx of tonsillectomy (Acute) Occupational Therapy Inpatient Evaluation/Re-Eval M1 PT/OT-IP Prior Functional Status Start: 04/05/19 08:35 Freq: NEEDED Status: Active Protocol: Document 04/06/19 14:09 PJBurt (Rec: 04/06/19 16:45 PJM [id number]) Medical Review Prior Functional Status Medical History Reviewed Yes Communication WNL Mobility and Gait Pt ambulated independently without AD but had a limit of 5-10 minutes before requiring a rest break due to increasing back pain. Activities of Daily Living and IADL's Pt was independent with self care and managed her own medications and finances. Her duaghter and son in law assisted with cooking, shopping, clean and driving. Pt did her own laundry. Prior Functional Level (Other details) Pt reports she has not fallen in the last year. Social History Household Members children Living Arrangements House Number of Floors (Floors) One Floor Number of Stairs To Enter/Railing? 4 [place]US[place] with narrow bilateral rails to enter mobile home Home Environment Standard Height Toilet,Walk in Shower Home Equipment Front Wheel Walker,Four Wheel Walker,Straight Cane,Manual Wheelchair,Raised Toilet Seat Without Armrests,Shower Seat without Backrest,Hand Held Shower,Long Handled Sponge, Long Handled Shoe Horn,Bilingual Sales Consultant ,Grab Bars Near Toilet,Grab Bars In Shower Employment Status Retired Additional Social History Comment Pt's daughter, Thomas, and son -in-law live with her. Thomas works night stocker but will be off work 3 weeks to be able to provide 24/7 care. Pt's daughter admits she would have difficulty providing heavy lift assist. Son in law works days and can assist pt overnight. M2 OT-IP Current Condition Start: 04/05/19 13:41 Freq: Status: Active Protocol: Document 04/06/19 14:09 PJM (Rec: 04/06/19 16:45 PJM [id number]) Occupational Therapy Current Condition Current Condition Evaluation Date 04/06/19 Treatment Diagnosis decreased self care, mobility s/p L3-T1 TLIF w/posterior instrumentation Diagnosis Onset Date 04/03/19 Post Operative Precautions Lumbar Precautions Log Roll,No Twisting,Limit Bending,Lifting Restriction of 10 lbs,Gait Belt above Incisional Area Other Precautions pt had dural defect and was on bedrest for 24 hrs post surgery M3 OT- IP Subjective and Pain Start: 04/05/19 13:41 Freq: Status: Active Protocol: Document 04/06/19 14:09 PJM (Rec: 04/06/19 16:45 PJM [id number]) OT- Subjective Occupational Therapy Visit Type Type Initial Evaluation Visit Start Time 13:28 Visit Stop Time 14:09 Total Visit Minutes 41 Notes Pt's daughter here for education this session. Occupational Therapy Visit Comments Patient Comments minimal conversation from pt, verbalizations mildly confused at times Patient/Caregiver Goals to go home, resume independence in daily tasks with less back pain OT Pain Assessment Pain When Pain Assessed After Treatment Pain Present Pain Present Pain Reported Location Lower Back Intensity 6 Scale Used Numeric (1 - 10) Description Aching,Acute Pain Behaviors Facial Grimacing,Guarding Management Techniques Distraction,Re-positioning, Timing of Activity with Medications M4 OT- IP ADL's Start: 04/05/19 13:41 Freq: Status: Active Protocol: Document 04/06/19 14:09 PJM (Rec: 04/06/19 16:45 PJM [id number]) OT [id number] General Evaluation Self-Feeding Ability Independent OT ADL-Grooming General Evaluation Grooming Ability Standby Assistance Areas Needing Assistance Face Washing Comments OT Grooming Comments after set up in chair OT ADL-Oral Care Comments Oral Care Comments did not occur this session OT ADL-Dressing Assistive Devices Dressing Assistive Devices Long Handled Shoe Horn,Bilingual Sales Consultant ,Sock Aid Comments OT Dressing Comments began education re: techniques for lower body dressing with equipment within lumbar spine precautions OT ADL-Toileting General Evaluation Toileting Ability Total Assistance Areas Needing Assistance Empty Catheter or Colostomy Comments OT Toileting Comments oliveros still in place OT ADL-Bathing Comments OT Bathing Comments to be assessed as activity tolerance improves M5 OT- IP IADL's Start: 04/05/19 13:41 Freq: Status: Active Protocol: Document 04/06/19 14:09 PJM (Rec: 04/06/19 16:45 [facility] [id number]) OT-Instrumental Activities of Daily Living Deficits IADL Deficits Identified Deficits Home Safety Awareness Awareness of Need for Assistance at Home Good Awareness Home Safety Comments pt needs assist to problem solve at present due to confusion Medication Management Medication Management Comments pt needs assistance at present due to confusion Money Management Money Management Comments pt needs assistance at present due to confusion Meal Preparation Meal Preparation Caregiver Provides Assist Meal Preparation Comments family to assist until pt able Sanitary Engineer Sanitary Engineer Caregiver Provides Assist Sanitary Engineer Comments family to assist until pt able Driving Driving Caregiver Provides Assist Driving Comments family to assist until pt able M6 OT- IP Functional Cognition Start: 04/05/19 13:41 Freq: Status: Active Protocol: Document 04/06/19 14:09 PJM (Rec: 04/06/19 16:45 [facility] [id number]) Cognitive Factors Limiting Selfcare Function Cognitive Ability Level of Alertness Confusional State Patient Orientation Name,Month,Date,Year,Situation Attention Span Ability Capable of Focused Attention, Unable to Sustain Attention Ability to Follow Commands Able to Follow One Step Commands Memory Description Short Term Impaired Safety Awareness Decreased Recall of Precautions,Decreased Ability to Apply Precautions Problem Solving Ability Unable to Identify Errors, Needs Assist to Identify Solutions Executive Function Ability Unable to Remember Details Cognitive Comments Cognitive Assessment Comments Pt presents with slowed speed of processing and conversation mildly confused. ? medication related and RN reports they are decreasing pt's narcotics. Pt's daughter reports pt has good memory at baseline OT- Vision and Hearing OT- Hearing Assessment OT- Hearing Assessment WFL,Use of Hearing Aids OT- Vision Assessment Visual Acuity WFL,Glasses For Reading M7 OT- IP Mobility and Balance Start: 04/05/19 13:41 Freq: Status: Active Protocol: Document 04/06/19 14:09 PJM (Rec: 04/06/19 16:45 PJM [email or web address]) OT- Bed Mobility Assessment Rolling Type of Rolling Roll to Right Level of Assistance Minimal Assistance,1 Person Assistance Sit to Supine Sit to Supine Assist Minimal Assistance,2 Person Assistance OT-Transfer Assessment Sit to and From Stand Sit to and from Stand Minimal Assistance,2 Person Assistance Transfers Transfer Ability Minimal Assistance,Moderate Assistance,2 Person Assistance Technique Transfer Destination Bed Transfer Technique Stand Step Pivot Devices Transfer Assistive Devices Gait Belt,Front Wheeled Walker Comments Mobility Comments 2 person assist for safety, pt needs mod to max verbal cues for log roll, scooting and transfer techniques OT- Gait Assessment Gait Distance (Feet) 2 Assistive Devices Assistive Device Gait Belt,Front Wheeled Walker OT- Balance Assessment Sitting Balance and Reactions Static Sitting Balance Ability Good Standing Balance and Reactions Static Standing Balance Ability Good Dynamic Standing Balance Ability Fair Comments Other Balance Tests/Deviations/Treatment with FWW : M8 OT- IP Objective Assessments Start: 04/05/19 13:41 Freq: Status: Active Protocol: Document 04/06/19 14:09 PJM (Rec: 04/06/19 16:45 PJ [id number]) OT Gross Range of Motion Upper Extremity Range of Motion Assessment Within Functional Limits OT Strength Upper Extremity Strength Assessment Within Functional Limits OT- Coordination Assessment Comments Coordination Comments BUE WNL OT-Muscle Tone Assessment Muscle Tone WNL Yes OT Sensation Assessment Comments Summary Comments BUE WNL per pt Edema Edema Absent M9 OT- IP Assessment and Plan Start: 04/05/19 13:41 Freq: Status: Active Protocol: Document 04/06/19 14:09 PJM (Rec: 04/06/19 16:45 PJ [id number]) OT Summary Assessment and Plan Potential Rehabilitation Potential Good Analytic Complexity at Evaluation Low Summary OT Impairments Pain,Strength,Balance, Functional Cognition, Functional Mobility,Grooming, Dressing,Toileting,Bathing, Toilet Transfers,Shower Transfers,Activity Tolerance Assessment Summary Low complexity OT assessment completed on this 74 yr old pt admitted for elective L3-S1 TLIF with posterior instrumentation with dural defect requiring 24 hrs of bed rest post surgery. Pt has post op confusion with narcotic usage currently being decreased by RN with improvement noted. Pt presents today with significant performance deficits in functional cognition, activity tolerance, all functional mobility/ transfers, standing grooming, lower body dressing, bathing and toileting with oliveros still in place. Will provide OT services here to address the goals below. Recommend SNF at d/c for further rehab services prior to return home with working daughter and son in law. Goals Grooming Goal Standby Assistance Dressing Goal Minimal Assistance,Long Handled Shoe Horn,Bilingual Sales Consultant,Sock Aid Toileting Goal Moderate Assistance Bathing Goal Minimal Assistance,Grab Bars, Hand Held Shower Sprayer,Long Handled Sponge or [place] Toilet Transfer Goal Contact Guard Assistance, Raised Toilet Seat,Grab Bars Shower Transfer Goal Contact Guard Assistance, Shower Chair,Grab Bars Patient/Caregiver Education Goal Demonstrate Post-Op Precautions,Demonstrate Energy Conservation and Pacing Days to Meet Goals 5 Frequency of Treatment Frequency Of Treatment Once a Day Treatment Plan OT Treatment Plan ADL Training,Functional Cognition Training,Functional Mobility,Patient/Family Education,Discharge Planning Discharge Recommendations OT Discharge Recommendations SNF Rehab Transportation Needs at Discharge Wheelchair/Cabulance
--- NOTE | 2019-04-06 14:17 | PT.IPTN ---
Current Diagnoses Other secondary scoliosis, lumbar region (04/04/19) Spondylolisthesis, lumbar region (04/04/19) Spinal stenosis, lumbar region with neurogenic claudication (04/04/19) Surgery Performed Operation Date: 04/04/19 08:45 Actual Procedures p L3-4,L4-5,L5-S1 TLIF w/ posterior instrumentation - Ryan Murry MD Physical Therapy Treatment Note M2 PT-IP Current Condition Start: 04/05/19 08:35 Freq: NEEDED Status: Active Protocol: Document 04/05/19 16:10 AW (Rec: 04/05/19 16:45 AW [id number]) Physical Therapy Current Condition Current Condition Evaluation Date 04/05/19 Treatment Diagnosis L3-4 L4-5 L5-S1 TLIF, impaired mobility Precautions Lumbar Precautions Log Roll,No Twisting,Limit Bending,Lifting Restriction of 10 lbs,Gait Belt above Incisional Area Weight Bearing Status Weight Bearing Status Full Weight Bearing M3 PT-IP Subjective Start: 04/05/19 08:35 Freq: NEEDED Status: Active Protocol: Document 04/06/19 14:01 KS (Rec: 04/06/19 15:35 KS [id number]) Subjective Physical Therapy Visit Type Type Treatment Note Visit Start Time 14:01 Visit Stop Time 14:17 Total Visit Minutes 16 Notes OT present to help transfer pt . Pts daughter present throughout treatment. Number of LOAN COUNSELOR Visits 2 Physical Therapy Visit Comments Patient Comments Pt more alert and agreeable to participate in therapy. M4 PT-IP Mobility and Gait Start: 04/05/19 08:35 Freq: NEEDED Status: Active Protocol: Document 04/06/19 14:01 KS (Rec: 04/06/19 15:35 KS [id number]) PT-Bed Mobility Assessment Rolling Type of Rolling Log Rolling,Roll to Right Level of Assist Minimal Assistance,2 Person Assistance Scooting Scooting to Edge of Bed Contact Guard Assistance PT-Transfer Assessment Sit to and From Stand Sit to and from Stand Minimal Assistance,2 Person Assistance,Use of Upper Extremities Equipment Transfer Assistive Device Gait Belt,Front Wheeled Walker Orthotic/Prosthetic Devices or Brace: No Transfers Transfer Destination Bed Transfer Technique Pt ambulated w/ FWW Transfer Ability Level of Assist Minimal Assistance,Moderate Assistance,1 Person Assistance ,2 Person Assistance Comments Mobility Comments Pt was sitting in chair upon arrival from PT, OT was present to assist w/ transfer. Pt was much more alert this afternoon and able to recall 1 /3 precautions (no bending). Pt was CGA for scooting to edge of chair and Min A x2 for sit<>stand w/ FWW w/ cues to push up from chair. Once standing, pt was able to back up to bed w/ FWW and then step laterally to the left before sitting. Pt needed cues for FWW management and cues to reach back before sitting. Stand<>sit EOB CGA. Once sitting, pt was able to maintain balance for 3 min SBA before performing logroll back into bed w/ cues for technique and hand placement. Min A x2 for guarding and LE assistance for logroll. After pt sup in bed, reviewed LE strengthening exercises. Pt left in bed w/ all needs in reach and SCDs on. Gait Assessment Gait Gait Assistance Required: Contact Guard Assist,Minimum Assistance Distance (Feet) 6 Able to Maintain Weight Bearing Status Yes During Gait Assistive Devices Assistive Device Gait Belt,Front Wheeled Walker Orthotic/Prosthetic Devices or Brace: No Gait Deviations General Gait Pattern Decreased Feet Clearance, Flexed Trunk Factors Limiting Gait Function Factors Limiting Gait Function Decreased Activity Tolerance, Decreased Strength,Limited Range of Motion,Pain,Poor Balance,Poor Safety Awareness Comments Gait Comments Please refer to mobility section for details. Stair Climbing Assessment Comments Stair Climbing Comments Not assessed. Unable at this time. PT-Balance Assessment Sitting Balance and Reactions Static Sitting Balance Ability Fair Dynamic Sitting Balance Ability Fair Standing Balance and Reactions Static Standing Balance Ability Poor Dynamic Standing Balance Ability Poor Device Used FWW M5 PT-IP Objective Assessments Start: 04/05/19 08:35 Freq: NEEDED Status: Active Protocol: Document 04/05/19 16:10 AW (Rec: 04/05/19 16:45 AW [id number]) Orientation Orientation/Cognition Level of Alertness Confusional State Orientation Name,Month,Place,Situation Language Function Ability No Deficits Noted Safety Awareness Understands Safety Issues Memory Description No Deficits Noted Gross Range of Motion Lower Extremity ROM Assessment Within Functional Limits Strength Upper Extremity Strength Assessment Bilaterally Impaired Lower Extremity Strength Assessment Bilaterally Impaired Comments Strength Comments Pt with difficulty supporting herself in sitting due to weak and painful wrists. Pt unable to flex knees in supine without assist. Sensation Assessment Sensation Gross Sensation WNL M6 PT-IP Treatment Start: 04/05/19 08:35 Freq: NEEDED Status: Active Protocol: Document 04/06/19 14:01 KS (Rec: 04/06/19 15:35 KS [id number]) Physical Therapy Treatment Exercises Exercises Ankle Pumps,Gluteal Sets,Quad Sets,Heel Slides Education Education Provided Precautions,Weight Bearing Status,Post-Op Packet,Safety M7 PT-IP Assessment and Plan Start: 04/05/19 08:35 Freq: NEEDED Status: Active Protocol: Document 04/06/19 14:01 KS (Rec: 04/06/19 15:35 KS [id number]) PT Summary Assessment and Plan Potential Rehabilitation Potential Fair Status of Condition at Evaluation Evolving Summary Impairments Pain,ROM,Strength,Balance,Bed Mobility,Transfers,Gait, Activity Tolerance Assessment Summary Pt was more alert and oriented during therapy this afternoon , but still requires frequent cues during transfers for hand placement and FWW management and correct logroll technique. PT was Min A x2 for sit<> stand from chair w/ FWW and cues, CGA to Min A for ambulation from chair to bed and lateral stepping w/ FWW, cues for FWW management. CGA for stand<>sit EOB, and SBA for sitting EOB for 3 min. Pt then performed logroll back into bed Min A x2 and cues for LE guidance and hand placement. Pt will benefit from continued skilled therapy to address mobility and strength deficits as well as ambulation. Goals Bed Mobility Goal Standby Assistance Transfer Goal Standby Assistance,Front Wheeled Walker Gait Goal Standby Assistance,Front Wheel Walker Gait Distance 100 Other Goals - up/down 4 steps with bilateral rails SBA Days to Meet Goals 10 Frequency of Treatment Frequency Of Treatment Twice a Day Treatment Plan Physical Therapy Treatment Plan Bed Mobility Training,Transfer Training,Gait Training, Therapeutic Exercise,Balance Retraining,Post Op Education, Discharge Planning,Hot or Cold Pack,Neuromuscular Re-ed, Coordination Retraining,Manual Therapy Other Recommendations and Next Treatment bed mobility, standing Focus attempts, transfer Recommendations To Nursing Amount of Assist Needed 2 Person Assist Discharge Recommendations PT Discharge Recommendations SNF Rehab Other Discharge Recommendations SNF rehab likely vs home with assist and HH (depending on progress)
[2019-04-06] MEDS: dexAMETHasone 4 MG TABLET PO ×2 (15:50→22:10)
[2019-04-06] MEDS: MAG HYDROX/ALUM/SIMETH 30 ML UDC PO (18:13)
[2019-04-06] MEDS: BISACODYL 10 MG SUPP PR (19:12)
[2019-04-06] MEDS: SENNOSIDES 8.6 MG TABLET 17.2 MG PO (22:10)
[2019-04-06] MEDS: ASCORBIC ACID 500 MG TABLET PO (22:11)
[2019-04-06] MEDS: SERTRALINE 50 MG TABLET 100 MG PO (22:11)
[2019-04-06] MEDS: FERROUS GLUCONATE 324 MG TABLET PO (22:12)
[2019-04-07] MEDS: dexAMETHasone 4 MG TABLET PO ×2 (04:11→12:56)
--- NOTE | 2019-04-07 04:13 | PC.NURSE ---
Shift note: Received patient from evening shift. Patient is AxO to self, situation, but has difficulty answering orientation questions correctly and makes several attempts at answering. Patient endorses confusion and asks if her stomach discomfort or urinary retention would cause confusion. Assured patient that she is not retaining urine and do not believe it's the result of her stomach discomfort. Patient has had 2 BM with copious amounts of flatus tonight using bedside commode with a one person assist and front wheel walker and found relief of her stomach discomfort after. Patient initially denied weakness with transfers but later stated she did feel weak. Patient has denied pain so far throughout the shift and has required no medication intervention at this time for pain. Dressing has shadow drainage to dressing and is rolling up in places. Not requiring supplemental oxygen tonight, lung sounds clear bilaterally and all other VSS. Patient is a high fall risk due to the confusion and weakness, bed alarm on and functioning, call light in reach (patient initially did not use it and instead called out from room for help) and patient demonstrated use. Will continue to monitor for her safety.
[2019-04-07 05:00] VITALS: BP 145/84; PULSE 77; RESP 16; TEMP 36.1; O2SAT 93
[2019-04-07 07:21] LABS: Hematocrit 23.4 % (36-46); Mean Corpuscular HGB Conc 34.3 % (30-36); Mean Corpuscular Volume 90.3 fL (80-100); Platelet Count 186 X10^3/uL (150-400); Red Blood Cell Count 2.59 X10^6/uL (4.0-5.2); Red Cell Distribution Width 12.9 % (11.6-14.8)
[2019-04-07 08:00] VITALS: O2SAT 96
[2019-04-07 08:09] VITALS: BP 135/77; PULSE 75; RESP 18; TEMP 36.9; O2SAT 93
[2019-04-07] MEDS: Mirabegron [Myrbetriq] 50 MG 50 EACH PO (08:36)
[2019-04-07] MEDS: FERROUS GLUCONATE 324 MG TABLET PO ×2 (08:36→20:17)
[2019-04-07] MEDS: CALCIUM CARBONATE 600 MG TABLET PO ×2 (08:36→20:20)
[2019-04-07] MEDS: DOCUSATE 100 MG CAPSULE PO ×2 (08:36→20:17)
[2019-04-07] MEDS: PROPRANOLOL 10 MG TABLET 20 MG PO ×2 (08:36→20:20)
[2019-04-07] MEDS: FLUTICASONE 120 SPRAY/16 GM SPRAY.SUSP NASAL (08:36)
[2019-04-07] MEDS: PANTOPRAZOLE 20 MG TABLET PO (08:36)
[2019-04-07] MEDS: LORATADINE 10 MG TABLET PO (08:40)
[2019-04-07] MEDS: SODIUM CHLORIDE 0.9% FLUSH 10 ML IV ×2 (08:40→20:18)
[2019-04-07] MEDS: ACETAMINOPHEN 325 MG TABLET 650 MG PO (08:40)
[2019-04-07] MEDS: ASCORBIC ACID 500 MG TABLET PO ×2 (08:40→20:17)
--- NOTE | 2019-04-07 09:42 | PC.NURSE ---
Patients back dressing is cdi, with small amount of drainage. She is A&Ox3 this morning. Given tylenol to help prevent pain, even though she is comfortable at this time. Denies nausea. No complaints of tingling or numbness to legs.
--- NOTE | 2019-04-07 11:08 | PT-IP ANOTE ---
Pt refused PT this morning x2, stating she just got out of bed and walked to bathroom w/ RECORD CENTER COORDINATOR and wanted to wait to walk again until her daughter is here after lunch.
[2019-04-07 12:09] VITALS: BP 119/53; PULSE 75; RESP 16; TEMP 36.9; O2SAT 95
--- NOTE | 2019-04-07 13:07 | PT.IPTN ---
Current Diagnoses Other secondary scoliosis, lumbar region (04/04/19) Spondylolisthesis, lumbar region (04/04/19) Spinal stenosis, lumbar region with neurogenic claudication (04/04/19) Surgery Performed Operation Date: 04/04/19 08:45 Actual Procedures p L3-4,L4-5,L5-S1 TLIF w/ posterior instrumentation - Ryan Murry MD Physical Therapy Treatment Note M2 PT-IP Current Condition Start: 04/05/19 08:35 Freq: NEEDED Status: Active Protocol: Document 04/05/19 16:10 AW (Rec: 04/05/19 16:45 AW [email or web address]) Physical Therapy Current Condition Current Condition Evaluation Date 04/05/19 Treatment Diagnosis L3-4 L4-5 L5-S1 TLIF, impaired mobility Precautions Lumbar Precautions Log Roll,No Twisting,Limit Bending,Lifting Restriction of 10 lbs,Gait Belt above Incisional Area Weight Bearing Status Weight Bearing Status Full Weight Bearing M3 PT-IP Subjective Start: 04/05/19 08:35 Freq: NEEDED Status: Active Protocol: Document 04/07/19 12:40 KS (Rec: 04/07/19 14:26 KS [id number]) Subjective Physical Therapy Visit Type Type Treatment Note Visit Start Time 12:40 Visit Stop Time 13:07 Total Visit Minutes 27 Notes Pts daughter present during treatment. Number of MATZO FORMING MACHINE OPERATOR Visits 3 Physical Therapy Visit Comments Patient Comments Pt agreeable to work w/ therapy. M4 PT-IP Mobility and Gait Start: 04/05/19 08:35 Freq: NEEDED Status: Active Protocol: Document 04/07/19 12:40 KS (Rec: 04/07/19 14:26 KS [id number]) PT-Bed Mobility Assessment Scooting Scooting to Edge of Bed Standby Assistance PT-Transfer Assessment Sit to and From Stand Sit to and from Stand Minimal Assistance,1 Person Assistance,Use of Upper Extremities Equipment Transfer Assistive Device Gait Belt,Front Wheeled Walker Orthotic/Prosthetic Devices or Brace: No Transfers Transfer Destination Chair Transfer Technique Pt ambulated w/ FWW Transfer Ability Level of Assist Minimal Assistance,1 Person Assistance,Use of Upper Extremities Comments Mobility Comments Pt was on toilet w/ nursing upon arrival from therapy. Nursing provided assistance from toilet. Pt then ambulated CGA from toilet to chair and stand<>sit CGA w/ FWW and cues for lateral stepping to be centered in chair prior to descent. Pt had 2 min seated rest break and able to recall 2/3 back precautions (no twisting). SBA for scooting to edge of chair, Min A and cues to push up from arm rests for sit<>stand. Pt then ambulated ~40ft w/ FWW and CGA. Pt demonstrated safe use of FWW and needs 1x cues for upright posture. Pts gait is slow and steady w/ decreased foot clearance and stride length d/ t weakness and liekly guarding from previous high pain levels. Pt then returned to room and properly brought FWW back to chair, stand<>sit CGA. Initiated caregiver training for use of gait belt w/ pts daughter and discussed pts need to do stair training before going home safely. Pt left in room w/ all needs in reach and chair alarm on. Gait Assessment Gait Gait Assistance Required: Contact Guard Assist,1 Person Assist Distance (Feet) 40 Able to Maintain Weight Bearing Status Yes During Gait Assistive Devices Assistive Device Gait Belt,Front Wheeled Walker Orthotic/Prosthetic Devices or Brace: No Gait Deviations General Gait Pattern Decreased Feet Clearance, Flexed Trunk Factors Limiting Gait Function Factors Limiting Gait Function Decreased Activity Tolerance, Decreased Strength,Limited Range of Motion,Pain,Poor Balance,Poor Safety Awareness Comments Gait Comments Please refer to mobility section for details. Stair Climbing Assessment Comments Stair Climbing Comments Not assessed. Unable at this time. PT-Balance Assessment Sitting Balance and Reactions Static Sitting Balance Ability Fair Dynamic Sitting Balance Ability Fair Standing Balance and Reactions Static Standing Balance Ability Fair Dynamic Standing Balance Ability Fair Device Used FWW M5 PT-IP Objective Assessments Start: 04/05/19 08:35 Freq: NEEDED Status: Active Protocol: Document 04/05/19 16:10 AW (Rec: 04/05/19 16:45 AW [email or web address]) Orientation Orientation/Cognition Level of Alertness Confusional State Orientation Name,Month,Place,Situation Language Function Ability No Deficits Noted Safety Awareness Understands Safety Issues Memory Description No Deficits Noted Gross Range of Motion Lower Extremity ROM Assessment Within Functional Limits Strength Upper Extremity Strength Assessment Bilaterally Impaired Lower Extremity Strength Assessment Bilaterally Impaired Comments Strength Comments Pt with difficulty supporting herself in sitting due to weak and painful wrists. Pt unable to flex knees in supine without assist. Sensation Assessment Sensation Gross Sensation WNL M6 PT-IP Treatment Start: 04/05/19 08:35 Freq: NEEDED Status: Active Protocol: Document 04/07/19 12:40 KS (Rec: 04/07/19 14:26 KS [id number]) Physical Therapy Treatment Education Education Provided Precautions,Weight Bearing Status,Post-Op Packet,Safety Other Treatments Other Treatment Performed Initiated caregiver training, discussed possible appropriate d/c options. M7 PT-IP Assessment and Plan Start: 04/05/19 08:35 Freq: NEEDED Status: Active Protocol: Document 04/07/19 12:40 KS (Rec: 04/07/19 14:26 KS [id number]) PT Summary Assessment and Plan Potential Rehabilitation Potential Fair Status of Condition at Evaluation Evolving Summary Impairments Pain,ROM,Strength,Balance,Bed Mobility,Transfers,Gait, Activity Tolerance Assessment Summary Pt is showing improvements w/ ambulation and tolerance for activity today. She was SBA for scooting, Min A and cues for sit<>stand, CGA for ambulation and stand<>sit. Able to recall 2/3 precautions . Pts daughter present throughout treatment and caregiver training initiated to familiarize daughter w/ gait belt and cues during transfers and ambulation. Pt is progressing, but still has low tolerance for activity and some confusion. She would benefit from additional day of therapy to assess stairs and ambulating further in order for safe d/c home rather than SNF. Goals Bed Mobility Goal Standby Assistance Transfer Goal Standby Assistance,Front Wheeled Walker Gait Goal Standby Assistance,Front Wheel Walker Gait Distance 100 Other Goals - up/down 4 steps with bilateral rails SBA Days to Meet Goals 10 Frequency of Treatment Frequency Of Treatment Twice a Day Treatment Plan Physical Therapy Treatment Plan Bed Mobility Training,Transfer Training,Gait Training, Therapeutic Exercise,Balance Retraining,Post Op Education, Discharge Planning,Hot or Cold Pack,Neuromuscular Re-ed, Coordination Retraining,Manual Therapy Other Recommendations and Next Treatment stairs, further ambulation, Focus bed mobility, standing attempts, transfers. Recommendations To Nursing Amount of Assist Needed 1 Person Assist Discharge Recommendations PT Discharge Recommendations Home with 06/09 Assist,Home Health,SNF Rehab
--- NOTE | 2019-04-07 13:51 | OT.IP.TRT ---
Current Diagnoses Other secondary scoliosis, lumbar region (04/04/19) Spondylolisthesis, lumbar region (04/04/19) Spinal stenosis, lumbar region with neurogenic claudication (04/04/19) Surgery Performed Operation Date: 04/04/19 08:45 Actual Procedures p L3-4,L4-5,L5-S1 TLIF w/ posterior instrumentation - Ryan Murry MD Occupational Therapy Treatment Note M2 OT-IP Current Condition Start: 04/05/19 13:41 Freq: Status: Active Protocol: Document 04/06/19 14:09 PJM (Rec: 04/06/19 16:45 PJM [email or web address]) Occupational Therapy Current Condition Current Condition Evaluation Date 04/06/19 Treatment Diagnosis decreased self care, mobility s/p L3-T1 TLIF w/posterior instrumentation Diagnosis Onset Date 04/03/19 Post Operative Precautions Lumbar Precautions Log Roll,No Twisting,Limit Bending,Lifting Restriction of 10 lbs,Gait Belt above Incisional Area Other Precautions pt had dural defect and was on bedrest for 24 hrs post surgery M3 OT- IP Subjective and Pain Start: 04/05/19 13:41 Freq: Status: Active Protocol: Document 04/07/19 13:51 PJM (Rec: 04/07/19 17:26 PJM [id number]) OT- Subjective Occupational Therapy Visit Type Type Treatment Note Visit Start Time 13:12 Visit Stop Time 13:51 Total Visit Minutes 39 Notes DaughterThomas, here for education this session. Occupational Therapy Visit Comments Patient Comments I am feeling better today, but still not thinking as clearly as usual. Patient/Caregiver Goals to go home, have less pain during daily tasks OT Pain Assessment Pain When Pain Assessed After Treatment Pain Present Pain Present Pain Reported Location Lower Back Intensity 1 Scale Used Numeric (1 - 10) Description Aching,Acute Pain Behaviors Facial Grimacing Management Techniques Distraction,Re-positioning, Timing of Activity with Medications M4 OT- IP ADL's Start: 04/05/19 13:41 Freq: Status: Active Protocol: Document 04/07/19 13:51 PJM (Rec: 04/07/19 17:26 PJM [id number]) OT ADL-Dressing General Eval Lower Body Dressing Ability Moderate Assistance Areas Needing Assistance Underpants/Brief,Socks Assistive Devices Dressing Assistive Devices Long Handled Shoe Horn,Byproducts Operator Comments OT Dressing Comments Practiced doffing and donning brief and socks with nut roaster helper and sock aid. Pt needs max cues and mod assist for unfamiliar tool use with significant apraxia and decreased spatial orientation of sock aid noted. OT ADL-Toileting Comments OT Toileting Comments pt declined need this session OT ADL-Bathing Comments OT Bathing Comments to be assessed M M6 OT- IP Functional Cognition Start: 04/05/19 13:41 Freq: Status: Active Protocol: Document 04/07/19 13:51 PJM (Rec: 04/07/19 17:26 [facility] [id number]) Cognitive Factors Limiting Selfcare Function Cognitive Ability Level of Alertness Alert Attention Span Ability Capable of Focused Attention, Capable of Sustained Attention Ability to Follow Commands Able to Follow One Step Commands Memory Description Short Term Impaired Problem Solving Ability Unable to Identify Errors, Needs Assist to Identify Solutions Cognitive Comments Cognitive Assessment Comments Pt still having difficulty following multi step instructions and requires repetition of new information. M7 OT- IP Mobility and Balance Start: 04/05/19 13:41 Freq: Status: Active Protocol: Document 04/07/19 13:51 PJ (Rec: 04/07/19 17:26 [email or web address] OT- Bed Mobility Assessment Rolling Type of Rolling Roll to Right Level of Assistance Contact Guard Assistance,1 Person Assistance Sit to Supine Sit to Supine Assist Minimal Assistance,1 Person Assistance OT-Transfer Assessment Sit to and From Stand Sit to and from Stand Contact Guard Assistance,1 Person Assistance Transfers Transfer Ability Contact Guard Assistance,1 Person Assistance Technique Transfer Destination Bed Transfer Technique Stand Step Pivot Devices Transfer Assistive Devices Gait Belt,Front Wheeled Walker Comments Mobility Comments much improved sit to stand ability, needs min assist to get legs onto bed and align self in bed after log rolling OT- Gait Assessment Comments Gait Ability Comments see P.T. notes OT- Balance Assessment Sitting Balance and Reactions Static Sitting Balance Ability Good Dynamic Sitting Balance Ability Good Standing Balance and Reactions Static Standing Balance Ability Good Dynamic Standing Balance Ability Fair Comments Other Balance Tests/Deviations/Treatment during lower body clothing : management M9 OT- IP Assessment and Plan Start: 04/05/19 13:41 Freq: Status: Active Protocol: Document 04/07/19 13:51 PJM (Rec: 04/07/19 17:26 [facility] [id number]) OT Summary Assessment and Plan Potential Rehabilitation Potential Good Summary OT Impairments Balance,Functional Mobility, Dressing,Toileting,Bathing, Toilet Transfers,Shower Transfers,Activity Tolerance Progress Towards Goals Progressing Toward Goals,Slow Progress due to Cognition Assessment Summary Pt making daily progress but continues to have mild cognitive impairment including difficulty following multistep instruction, motor planning, spatial orientation and retention of new information e.g. new techniques for lower body dressing with adaptive equipment. Pt showing significant improvement in functional mobility and activity tolerance. Pt now has potential to d/c home with 24 hr assist from daughter when medically stable and clears P.T. Pt would benefit from staying until Sunday 04/09 for further education re: self care skills including shower and lower body dressing with adaptive equipment. Goals Grooming Goal Standby Assistance Dressing Goal Standby Assistance,Long Handled Shoe Horn,Byproducts Operator,Sock Aid Toileting Goal Minimal Assistance Bathing Goal Minimal Assistance,Grab Bars, Hand Held Shower Sprayer,Long Handled Sponge or Niland Toilet Transfer Goal Standby Assistance,Raised Toilet Seat,Grab Bars Shower Transfer Goal Contact Guard Assistance, Shower Chair,Grab Bars Patient/Caregiver Education Goal Demonstrate Post-Op Precautions,Demonstrate Energy Conservation and Pacing Days to Meet Goals 2 Frequency of Treatment Frequency Of Treatment Once a Day Treatment Plan OT Treatment Plan ADL Training,Functional Cognition Training,Functional Mobility,Patient/Family Education,Discharge Planning Discharge Recommendations OT Discharge Recommendations Home with 06/09 Assist,Home Health Transportation Needs at Discharge Private Vehicle
--- NOTE | 2019-04-07 15:18 | P.PN_ITS ---
Subjective Subjective Date Patient Seen: 04/07/19 Interval history: POD #3 s/p TLIF with Dr. Murry. No acute events overnight. Pain has been mild to moderate overnight and today, well controlled with medication. H&H today was stable. She is no longer hypotensive and notes resolution of lightheadedness or dizziness with positional changes. She was able to mobilize somewhat with PT today. Pérez removed today and voiding appropriately. No nausea, vomiting, chest pain or shortness of breath. Exam Vital Signs (past 8 hours): - 04/07/19 08:00 04/07/19 08:09 Temperature 98.4 F Pulse Rate 75 Respiratory Rate 18 Blood Pressure 135/77 Pulse Oximetry 96 93 Oxygen Delivery Method Room Air Oxygen Flow Rate 0 Narrative Exam Narrative: 74 year old female resting comfortably in bed. Alert and oriente d in no acute distress. Dressing in place over lumbar spine is CDI with some shadow drainage. 5/5 BLE. Sensation intact to light touch. Calves soft, compressible bilaterally. Objective Labs Result Diagrams: 04/07/19 06:10 Labs: Laboratory Results - last 24 hr 04/07/19 06:10 WBC 12.0 H RBC 2.59 L Hgb 8.0 L Hct 23.4 L MCV 90.3 MCH 31.0 MCHC 34.3 RDW 12.9 Plt Count 186 Assessment & Plan Assessment & Plan narrative: Patient showing noticeably improvement in her postoperative course. Continue to work with PT/OT. Continue present pain management. Still may consider SNF, however patient mobilizing better today and has family available for postoperative care. If continued improvement tomorrow will discharge home with possible home health. Quality VTE Deep Vein Thrombosis/Pulmonary Embolism Present on Admission: No
[2019-04-07 15:30] VITALS: BP 125/67; PULSE 77; RESP 19; TEMP 36.8; O2SAT 97
--- NOTE | 2019-04-07 18:49 | PC.NURSE ---
Addendum entered by Lakshmi Lombardo R.N. 04/07/19 21:16: Relatively uneventful evening. Pt condition remains essentially unchanged. Denies discomfort. Dsg intact. Call light w/in reach, bed alarm on for pt safety. Continue w/plan of care. Original Note: Pt resting quietly at this time. Lungs clear/diminished, SpO2 96% RA, IS to 2000 w/o difficulty. Dsg to back intact. Stable post op course. Call light w/in reach, bed alarm on for pt safety.
[2019-04-07 19:50] VITALS: BP 144/80; PULSE 75; RESP 18; TEMP 36.8; O2SAT 98
[2019-04-07] MEDS: SENNOSIDES 8.6 MG TABLET 17.2 MG PO (20:17)
[2019-04-07] MEDS: SERTRALINE 50 MG TABLET 100 MG PO ×2 (20:17→20:19)
[2019-04-08 00:11] VITALS: BP 138/76; PULSE 74; RESP 16; TEMP 36; O2SAT 93
[2019-04-08 03:55] VITALS: BP 140/77; PULSE 74; RESP 18; TEMP 36.2; O2SAT 98
[2019-04-08] MEDS: PANTOPRAZOLE 20 MG TABLET PO (08:00)
[2019-04-08] MEDS: LORATADINE 10 MG TABLET PO (08:01)
[2019-04-08] MEDS: CALCIUM CARBONATE 600 MG TABLET PO (08:01)
[2019-04-08] MEDS: DOCUSATE 100 MG CAPSULE PO (08:01)
[2019-04-08] MEDS: FERROUS GLUCONATE 324 MG TABLET PO (08:01)
[2019-04-08] MEDS: PROPRANOLOL 10 MG TABLET 20 MG PO (08:01)
[2019-04-08] MEDS: Mirabegron [Myrbetriq] 50 MG 50 EACH PO (08:02)
[2019-04-08] MEDS: ASCORBIC ACID 500 MG TABLET PO (08:02)
[2019-04-08] MEDS: SODIUM CHLORIDE 0.9% FLUSH 10 ML IV (08:03)
[2019-04-08 08:11] VITALS: BP 146/83; PULSE 68; RESP 16; TEMP 36.8; O2SAT 92
[2019-04-08 08:45] VITALS: BP 130/73; PULSE 71; RESP 16; TEMP 36.9; O2SAT 98
--- NOTE | 2019-04-08 10:28 | P.DS_ITS ---
History of Present Illness History of Present Illness Chief complaint: Tranlaminar Interbody Fusion/Gonzalez ID Discharge Providers Provider Date of admission: 04/04/19 07:16 Discharge Date: 04/08/19 Primary care physician: Lois Cortez MD Consults: 04/04/19 16:42 Consult to Occupational Therapy Evaluate & Treat Comment: Physician Instructions: Evaluate and treat Consult to Physical Therapy Evaluate & Treat Comment: Physician Instructions: Evaluate and Treat Discharge provider: Cheyenne Kiran MD Summary Hospital Course Discharge Diagnosis: Spinal stenosis Hospital Course: Patient was taped into the operating room where she underwent a decompression and fusion. She did well with surgery. She was mobilized with physical therapy and noted to be independent and able to do steps with a walker. She was stable for discharge and discharged to home. Status at Discharge Cognitive/behavioral status at discharge: oriented Functional status at discharge: uses cane/walker Overall status at discharge: patient is progressing back to baseline Time Spent with Patient Time spent: Less than 30 minutes Exam Vital Signs (past 8 hours): - 04/08/19 03:55 04/08/19 08:45 Temperature 97.1 F L 98.4 F Pulse Rate 74 71 Respiratory Rate 18 16 Blood Pressure 140/77 130/73 Pulse Oximetry 98 98 Oxygen Delivery Method Room Air Oxygen Flow Rate 0 Objective Labs Result Diagrams: 04/07/19 06:10 Discharge Plan Discharge Plan Patient Disposition: Home Discharge orders & Medications Prescriptions: New acetaminophen 325 mg Tablet 650 mg PO Q6HR PRN (Reason: Pain, Mild (1-3)) Qty: 40 RF: 0 ascorbic acid (vitamin C) [Vitamin C] 500 mg Tablet 500 mg PO BID Qty: 40 RF: 0 docusate sodium [DOK] 100 mg Capsule 100 mg PO BID Qty: 40 RF: 0 hydroxyzine pamoate 25 mg Capsule 25 mg PO Q4HR PRN (Reason: Nausea And Vomiting) Qty: 40 RF: 0 ferrous gluconate 324 mg (38 mg iron) Tablet 324 mg PO BID Qty: 40 RF: 0 oxycodone 5 mg capsule 5 mg PO Q3HR PRN (Reason: Pain, Severe (7-10)) Qty: 40 RF: 0 Continued acetaminophen [Tylenol] 325 mg Tablet 650 mg PO BEDTIME RF: 0 ibuprofen 200 mg Capsule 400 mg PO DAILY RF: 0 sertraline [Zoloft] 100 mg Tablet 100 mg PO BEDTIME RF: 0 calcium carbonate [Calcium 600] 600 mg calcium (1,500 mg) Tablet 600 mg PO BID RF: 0 propranolol 20 mg Tablet 20 mg PO BID RF: 0 fluticasone propionate [Flonase Allergy Relief] 50 mcg/actuation [place] ,Suspension 1 spray INTRANASAL DAILY PRN (Reason: Seasonal allergies) RF: 0 omeprazole 20 mg Tablet,Delayed Release (Dr/Ec) 20 mg PO DAILY RF: 0 Myrbetriq 50 mg Tablet Extended Release 24 Hr 50 mg PO DAILY RF: 0 loratadine [Claritin] 10 mg Tablet 10 mg PO DAILY RF: 0 sertraline 100 mg tablet See Rx Instructions .ROUTE .COMPLEX RF: 0 Follow up/Referrals: Ryan Murry MD [Physician] - Lois Cortez MD [Primary Care Provider] - Diet/Activity/Treatments Diet: Diet as Tolerated Activity: No bending, lifting, or twisting. Use a front wheel walker for fall prevention. Cold/Heat Therapy: Ice packs as needed. Skin/Wound/Dressing Care Report to your healthcare provider any signs of infection, such as:: chills, fever, night sweats, unusual drainage and unusual redness Dressing: Dressing is to remain in place until your 2 week post op. Please call the office if this becomes soiled or saturated. Visit Report/Discharge Packet Instructions: DI for Transforaminal Lumbar Interbody Fusion Discharge Data Primary Care Provider: Lois Cortez Quality VTE Deep Vein Thrombosis/Pulmonary Embolism Present on Admission: No
--- NOTE | 2019-04-08 11:18 | PT.IPTN ---
Current Diagnoses Other secondary scoliosis, lumbar region (04/04/19) Spondylolisthesis, lumbar region (04/04/19) Spinal stenosis, lumbar region with neurogenic claudication (04/04/19) Surgery Performed Operation Date: 04/04/19 08:45 Actual Procedures p L3-4,L4-5,L5-S1 TLIF w/ posterior instrumentation - Ryan Murry MD Physical Therapy Treatment Note M2 PT-IP Current Condition Start: 04/05/19 08:35 Freq: NEEDED Status: Active Protocol: Document 04/05/19 16:10 AW (Rec: 04/05/19 16:45 AW [email or web address]) Physical Therapy Current Condition Current Condition Evaluation Date 04/05/19 Treatment Diagnosis L3-4 L4-5 L5-S1 TLIF, impaired mobility Precautions Lumbar Precautions Log Roll,No Twisting,Limit Bending,Lifting Restriction of 10 lbs,Gait Belt above Incisional Area Weight Bearing Status Weight Bearing Status Full Weight Bearing M3 PT-IP Subjective Start: 04/05/19 08:35 Freq: NEEDED Status: Active Protocol: Document 04/08/19 11:10 AW (Rec: 04/08/19 11:18 AW [id number]) Subjective Physical Therapy Visit Type Type Treatment Note Visit Start Time 09:26 Visit Stop Time 09:54 Total Visit Minutes 28 Number of ABSTRACT MANAGER Visits 0 Physical Therapy Visit Comments Patient Comments Pt agreeable to work w/ therapy. Patient Goals Pt hoping to d/c today M4 PT-IP Mobility and Gait Start: 04/05/19 08:35 Freq: NEEDED Status: Active Protocol: Document 04/08/19 11:10 AW (Rec: 04/08/19 11:18 AW [id number]) PT-Bed Mobility Assessment Rolling Type of Rolling Roll to Right Level of Assist Standby Assistance Supine to Sit Supine to Sit Standby Assistance Sit to Supine Sit to Supine Standby Assistance Scooting Scooting to Edge of Bed Standby Assistance PT-Transfer Assessment Sit to and From Stand Sit to and from Stand Contact Guard Assistance,1 Person Assistance,Use of Upper Extremities Equipment Transfer Assistive Device Gait Belt,Front Wheeled Walker Orthotic/Prosthetic Devices or Brace: No Transfers Transfer Destination Toilet Transfer Technique Stand Step Pivot Transfer Ability Level of Assist Standby Assistance Comments Mobility Comments Pt sitting up in bed upon PT arrival. She completed log roll to her left side and supine to sit SBA. She stood using FWW SBA and walked to the toilet where she transferred to and from with FWW SBA. After gait training, pt requested return to bed and transferred sit to suping with log roll SBA. Gait Assessment Gait Gait Assistance Required: Standby Assistance Distance (Feet) 125 Able to Maintain Weight Bearing Status Yes During Gait Assistive Devices Assistive Device Gait Belt,Front Wheeled Walker Orthotic/Prosthetic Devices or Brace: No Gait Deviations General Gait Pattern Decreased Feet Clearance, Flexed Trunk Factors Limiting Gait Function Factors Limiting Gait Function Decreased Activity Tolerance, Decreased Strength,Limited Range of Motion,Pain,Poor Balance,Poor Safety Awareness Comments Gait Comments Pt ambulated in the hallway with FWW SBA. Gait was remarkable for decreased stance time on the RLE with pt reporting midline back pain and right hip pain with increased distance. Pt moved safely with FWW. Stair Climbing Assessment Evaluation Level of Assist On Stairs Standby Assistance Devices Stair Climbing Assistive Devices Left Railing,Right Railing Technique/Endurance Stair Climbing Direction Ascend and Descend Stair Climbing Technique Step Over Step Number of Steps Climbed 3 Stair Climbing Set # Repetitions (reps) 2 Comments Stair Climbing Comments Pt required no more than SBA using bilateral rails to simulate home environment. M5 PT-IP Objective Assessments Start: 04/05/19 08:35 Freq: NEEDED Status: Active Protocol: Document 04/05/19 16:10 AW (Rec: 04/05/19 16:45 AW [email or web address]) Orientation Orientation/Cognition Level of Alertness Confusional State Orientation Name,Month,Place,Situation Language Function Ability No Deficits Noted Safety Awareness Understands Safety Issues Memory Description No Deficits Noted Gross Range of Motion Lower Extremity ROM Assessment Within Functional Limits Strength Upper Extremity Strength Assessment Bilaterally Impaired Lower Extremity Strength Assessment Bilaterally Impaired Comments Strength Comments Pt with difficulty supporting herself in sitting due to weak and painful wrists. Pt unable to flex knees in supine without assist. Sensation Assessment Sensation Gross Sensation WNL M6 PT-IP Treatment Start: 04/05/19 08:35 Freq: NEEDED Status: Active Protocol: Document 04/08/19 11:10 AW (Rec: 04/08/19 11:18 AW [id number]) Physical Therapy Treatment Education Education Provided Precautions,Safety Other Treatments Other Treatment Performed Pt able to recall 2/3 spinal precautions. Continued to reinforce precautions, especially during transfer and gait M7 PT-IP Assessment and Plan Start: 04/05/19 08:35 Freq: NEEDED Status: Active Protocol: Document 04/08/19 11:10 AW (Rec: 04/08/19 11:18 AW [id number]) PT Summary Assessment and Plan Potential Rehabilitation Potential Good Status of Condition at Evaluation Stable Summary Impairments Pain,ROM,Strength,Balance,Bed Mobility,Transfers,Gait, Activity Tolerance Progress Towards Goals Progressing Toward Goals Assessment Summary Pt required decreased level of assist with all mobility today, including stairs, without increase in pain. PT recommending discharge to home after caregiver training this afternoon and once medically cleared. Goals Bed Mobility Goal Standby Assistance Transfer Goal Standby Assistance,Front Wheeled Walker Gait Goal Standby Assistance,Front Wheel Walker Gait Distance 100 Other Goals - up/down 4 steps with bilateral rails SBA Days to Meet Goals 5 Frequency of Treatment Frequency Of Treatment Twice a Day Treatment Plan Physical Therapy Treatment Plan Bed Mobility Training,Transfer Training,Gait Training, Therapeutic Exercise,Balance Retraining,Post Op Education, Discharge Planning,Hot or Cold Pack,Neuromuscular Re-ed, Coordination Retraining,Manual Therapy Other Recommendations and Next Treatment caregiver training, stairs Focus Recommendations To Nursing Amount of Assist Needed 1 Person Assist Discharge Recommendations PT Discharge Recommendations Home with 06/09 Assist,Home Health
[2019-04-08 11:58] VITALS: BP 128/72; PULSE 79; RESP 16; TEMP 36.6; O2SAT 98
--- NOTE | 2019-04-08 12:15 | CM.DPNOTE ---
DCP: continued: d/c to home order noted by Dr. Kiran. EMR reviewed. Went to room to check in with pt. Pt states she is aware of the d/c order to home for today and is feeling very comfortable with this plan. She has been up this morning and mobilizing about the unit with PT Emely. Pt says her daughter will be here by 1300 to take her home. Orthopedic clinic followup is planned. P: home today with family assist as per pt's DC PLan A. RE: Plan B: called [facility] admissions line and left message releasing the referral.
--- NOTE | 2019-04-08 14:06 | PC.NURSE ---
Discharge Orders for discharge were received. The patient and family were made aware of the plan for discharge and were agreeable to go. Information, including handouts, were given to the patient including information on diagnosis, spinal precautions, signs and symptoms to be aware of, scripts with teaching on new medications and follow-up directions. The patient stated understanding of this information and the IV was removed intact. All belongings gathered and accompanied patient. The patient then ambulated to a wheelchair and was wheeled to the main entrance to a private vehicle. At the time of discharge the patient was alert and oriented, with no complaints of chest pain, shortness of breath, nausea, vomiting or other difficulty, with dressing to back intact.
--- NOTE | 2019-04-08 14:33 | PT.IPTN ---
Current Diagnoses Other secondary scoliosis, lumbar region (04/04/19) Spondylolisthesis, lumbar region (04/04/19) Spinal stenosis, lumbar region with neurogenic claudication (04/04/19) Surgery Performed Operation Date: 04/04/19 08:45 Actual Procedures p L3-4,L4-5,L5-S1 TLIF w/ posterior instrumentation - Ryan Murry MD Physical Therapy Treatment Note M2 PT-IP Current Condition Start: 04/05/19 08:35 Freq: NEEDED Status: Discharge Protocol: Document 04/05/19 16:10 AW (Rec: 04/05/19 16:45 AW [email or web address]) Physical Therapy Current Condition Current Condition Evaluation Date 04/05/19 Treatment Diagnosis L3-4 L4-5 L5-S1 TLIF, impaired mobility Precautions Lumbar Precautions Log Roll,No Twisting,Limit Bending,Lifting Restriction of 10 lbs,Gait Belt above Incisional Area Weight Bearing Status Weight Bearing Status Full Weight Bearing M3 PT-IP Subjective Start: 04/05/19 08:35 Freq: NEEDED Status: Discharge Protocol: Document 04/08/19 14:29 AW (Rec: 04/08/19 14:33 AW [id number]) Subjective Physical Therapy Visit Type Type Treatment Note Visit Start Time 13:15 Visit Stop Time 13:30 Total Visit Minutes 15 Notes Pt's daughter present and participating in caregiver training Number of DESIGN DRAFTER Visits 0 Physical Therapy Visit Comments Patient Comments Pt agreeable to work w/ therapy. Therapy Pain Assessment Pain When Pain Assessed During Mobility Pain Present Pain Present Pain Reported Location Lower Back Intensity 2 Scale Used Numeric (1 - 10) Pain Management Techniques Re-positioning,Timing of Activity with Medications M4 PT-IP Mobility and Gait Start: 04/05/19 08:35 Freq: NEEDED Status: Discharge Protocol: Document 04/08/19 11:10 AW (Rec: 04/08/19 11:18 AW [id number]) PT-Bed Mobility Assessment Rolling Type of Rolling Roll to Right Level of Assist Standby Assistance Supine to Sit Supine to Sit Standby Assistance Sit to Supine Sit to Supine Standby Assistance Scooting Scooting to Edge of Bed Standby Assistance PT-Transfer Assessment Sit to and From Stand Sit to and from Stand Contact Guard Assistance,1 Person Assistance,Use of Upper Extremities Equipment Transfer Assistive Device Gait Belt,Front Wheeled Walker Orthotic/Prosthetic Devices or Brace: No Transfers Transfer Destination Toilet Transfer Technique Stand Step Pivot Transfer Ability Level of Assist Standby Assistance Comments Mobility Comments Pt sitting up in bed upon PT arrival. She completed log roll to her left side and supine to sit SBA. She stood using FWW SBA and walked to the toilet where she transferred to and from with FWW SBA. After gait training, pt requested return to bed and transferred sit to suping with log roll SBA. Gait Assessment Gait Gait Assistance Required: Standby Assistance Distance (Feet) 125 Able to Maintain Weight Bearing Status Yes During Gait Assistive Devices Assistive Device Gait Belt,Front Wheeled Walker Orthotic/Prosthetic Devices or Brace: No Gait Deviations General Gait Pattern Decreased Feet Clearance, Flexed Trunk Factors Limiting Gait Function Factors Limiting Gait Function Decreased Activity Tolerance, Decreased Strength,Limited Range of Motion,Pain,Poor Balance,Poor Safety Awareness Comments Gait Comments Pt ambulated in the hallway with FWW SBA. Gait was remarkable for decreased stance time on the RLE with pt reporting midline back pain and right hip pain with increased distance. Pt moved safely with FWW. Stair Climbing Assessment Evaluation Level of Assist On Stairs Standby Assistance Devices Stair Climbing Assistive Devices Left Railing,Right Railing Technique/Endurance Stair Climbing Direction Ascend and Descend Stair Climbing Technique Step Over Step Number of Steps Climbed 3 Stair Climbing Set # Repetitions (reps) 2 Comments Stair Climbing Comments Pt required no more than SBA using bilateral rails to simulate home environment. M5 PT-IP Objective Assessments Start: 04/05/19 08:35 Freq: NEEDED Status: Discharge Protocol: Document 04/05/19 16:10 AW (Rec: 04/05/19 16:45 AW [email or web address]) Orientation Orientation/Cognition Level of Alertness Confusional State Orientation Name,Month,Place,Situation Language Function Ability No Deficits Noted Safety Awareness Understands Safety Issues Memory Description No Deficits Noted Gross Range of Motion Lower Extremity ROM Assessment Within Functional Limits Strength Upper Extremity Strength Assessment Bilaterally Impaired Lower Extremity Strength Assessment Bilaterally Impaired Comments Strength Comments Pt with difficulty supporting herself in sitting due to weak and painful wrists. Pt unable to flex knees in supine without assist. Sensation Assessment Sensation Gross Sensation WNL M6 PT-IP Treatment Start: 04/05/19 08:35 Freq: NEEDED Status: Discharge Protocol: Document 04/08/19 14:29 AW (Rec: 04/08/19 14:33 AW [id number]) Physical Therapy Treatment Education Education Provided Precautions,Safety Other Treatments Other Treatment Performed Pt and daughter able to recall 3/3 spinal precautions. Pt's daughter provided all assist, including donning gait belt and guarding during transfers, gait, and stairs M7 PT-IP Assessment and Plan Start: 04/05/19 08:35 Freq: NEEDED Status: Discharge Protocol: Document 04/08/19 14:29 AW (Rec: 04/08/19 14:33 AW [id number]) PT Summary Assessment and Plan Summary Impairments Pain,ROM,Strength,Balance,Bed Mobility,Transfers,Gait, Activity Tolerance Progress Towards Goals Progressing Toward Goals Assessment Summary Pt's daughter able to provide appropriate cues and level of assist in all mobility tasks. Pt reporting minimal increase in pain during treatment.She navigated stairs safely again and is safe to discharge home with 24/7 assist. Goals Bed Mobility Goal Standby Assistance Transfer Goal Standby Assistance,Front Wheeled Walker Gait Goal Standby Assistance,Front Wheel Walker Gait Distance 100 Other Goals - up/down 4 steps with bilateral rails SBA Days to Meet Goals 3 Discharge Recommendations PT Discharge Recommendations Home with 24/7 Assist,Home Health
== END 2019-04-08 13:30 | disposition home or self-care (01) | DRG 454 ==
PROVIDERS: Anesthesiology; Physician Assistant Surgical; Admitting Provider Orthopaedic Surgery Orthopaedic Surgery of the Spine; PCP Family Medicine; Referring Provider Orthopaedic Surgery Orthopaedic Surgery of the Spine; Visit Provider Orthopaedic Surgery Orthopaedic Surgery of the Spine
PROC: 0SG10AJ Fusion of 2 or more Lumbar Vertebral Joints with Interbody Fusion Device, Posterior Approach, Anterior Column, Open Approach (ICD-10-PCS; principal; 2019-04-04 08:45)
DX: M41.56 Other secondary scoliosis, lumbar region (principal); D62 Acute posthemorrhagic anemia; M48.061 Spinal stenosis, lumbar region without neurogenic claudication; M43.16 Spondylolisthesis, lumbar region; E66.9 Obesity, unspecified; K21.9 Gastro-esophageal reflux disease without esophagitis; Z68.37 Body mass index [BMI] 37.0-37.9, adult; M48.07 Spinal stenosis, lumbosacral region; M43.17 Spondylolisthesis, lumbosacral region; R41.0 Disorientation, unspecified; T40.2X5A Adverse effect of other opioids, initial encounter
CPT/HCPCS: 36415; 72100; 76000; 85014; 85018; 85027; 86850; 86900; 86901; 97110; 97116; 97161; 97165; 97530; 97535; C1776; C9290; J0330; J0690; J1100; J1170; J2405; J2704; J3010